=== PATIENT | female | born 1955 | race Caucasian/White ===

== ENCOUNTER 2022-04-07 13:20 | Inpatient (IN) | payer MEDICARE, OTHER, SELFPAY ==
[2022-04-07] MEDS ORDERED: Fentanyl 100 MCG/2 ML VIAL ONE (14:49)
[2022-04-07 15:16] LABS: Hemoglobin 15.8 g/dL (12.0-15.5); Mean Corpuscular HGB CONC 33.1 g/dL (32.0-36.0); Mean Corpuscular Hemoglobin 30.4 pg (27.0-33.0); Mean Corpuscular Volume 91.9 fl (81.6-98.3); Mean Platelet Volume 9.3 fl (7.4-10.4); Platelet Count 565 10x3/uL (150-450); RBC Distribution Width 12.9 % (11.5-14.5); Red Blood Cell (RBC) Count 5.19 10x6/uL (3.90-5.03); White Blood Cell (WBC) Count 27.6 10x3/uL (3.5-10.5)
[2022-04-07 15:35] LABS: ALT (SGPT) 46 U/L (8-55); AST (SGOT) 104 U/L (5-34); Albumin 3.8 g/dL (3.4-4.8); Alkaline Phosphatase 125 U/L (40-110); Anion Gap 23 mmol/L (10-20); BUN (Urea Nitrogen) 31 mg/dL (9.8-20.1); Calc. Creatinine Clearance 0 mL/min (70-130); Calcium 9.7 mg/dL (7.8-10.44); Carbon Dioxide 15 mmol/L (23-31); Chloride 104 mmol/L (98-107); Estimated GFR 37; Globulin 3.9 g/dL (2.4-3.5); Glucose 122 mg/dL (80-115); Potassium 4.9 mmol/L (3.5-5.1); Protein, Total 7.7 g/dL (5.8-8.1); Sodium 137 mmol/L (136-145)
[2022-04-07 16:01] LABS: Band 2 % (5-11)
[2022-04-07 16:06] LABS: MDiff Complete? YES
[2022-04-07 16:07] LABS: Lymphocytes 5 % (21-51); Monocytes 5 % (0-10); Neutrophil 88 % (42-75)
[2022-04-07 16:08] LABS: Platelet Morphology Comment Appears Increased
[2022-04-07 16:12] LABS: CK (CPK) 7656 U/L (29-168)
[2022-04-07] MEDS ORDERED: Senokot S 8.6-50 MG TAB PO PRN (18:32)
[2022-04-07] MEDS ORDERED: Ondansetron ODT 4 MG TAB PO PRN (18:32)
[2022-04-07] MEDS ORDERED: Acetaminophen 325 MG TAB PO PRN (18:32)
[2022-04-07] MEDS ORDERED: Ondansetron PF 4 MG/2 ML Vial IVP PRN (18:32)
[2022-04-07 19:19] LABS: Lactic Acid 2.1 mmol/L (0.5-2.2)
[2022-04-07 20:19] VITALS: BMI 61.1
[2022-04-07] MEDS: HYDROcodone/Acetaminophen 5/325 mg Tablet PO PRN (22:02)
[2022-04-07] MEDS: Nystatin Powder 15 GM BOT TOP SCH (22:04)
[2022-04-07] MEDS: cefTRIAXone\\ROCEPHIN 2 GM in Sodium Chloride 0.9% 100 ML IVPB SCH (22:04)
[2022-04-07] MEDS: Sodium Chloride 0.9% 1,000 ML IV SCH (22:04)
[2022-04-07] MEDS: Heparin 5,000 UNITS/ML VIAL SC SCH (22:19)
[2022-04-08] MEDS: Sodium Chloride 0.9% 1,000 ML IV SCH ×2 (01:16→09:05)
[2022-04-08] MEDS: HYDROcodone/Acetaminophen 5/325 mg Tablet PO PRN ×2 (03:00→09:00)
[2022-04-08 03:54] LABS: SARS-CoV-2 NAA Rapid Test Not Detected (NotDetected)
[2022-04-08 05:19] LABS: #Basophils 0.1 10x3/uL (0.0-0.2); #Eosinphils 0.1 10x3/uL (0.0-0.5); #Monocytes 1.8 10x3/uL (0.0-1.1); #Neutrophils 15.8 10x3/uL (1.5-8.4); %Basophils 0.3 % (0.0-2.0); %Eosinophils 0.6 % (0.0-6.0); %Lymphocytes 10.1 % (18.0-47.0); %Monocytes 8.9 % (0.0-10.0); %Neutrophils 79.3 % (40.0-75.0); Hemoglobin 12.8 g/dL (12.0-15.5); Mean Corpuscular HGB CONC 32.8 g/dL (32.0-36.0); Mean Corpuscular Hemoglobin 30.5 pg (27.0-33.0); Mean Corpuscular Volume 92.9 fl (81.6-98.3); Platelet Count 427 10x3/uL (150-450); White Blood Cell (WBC) Count 19.9 10x3/uL (3.5-10.5)
[2022-04-08 05:43] LABS: ALT (SGPT) 44 U/L (8-55); AST (SGOT) 105 U/L (5-34); Alkaline Phosphatase 105 U/L (40-110); Anion Gap 18 mmol/L (10-20); BUN (Urea Nitrogen) 33 mg/dL (9.8-20.1); Bilirubin, Total 0.7 mg/dL (0.2-1.2); Calc. Creatinine Clearance 125 mL/min (70-130); Calcium 8.5 mg/dL (7.8-10.44); Carbon Dioxide 14 mmol/L (23-31); Chloride 109 mmol/L (98-107); Estimated GFR 51; Globulin 2.8 g/dL (2.4-3.5); Glucose 130 mg/dL (80-115); Magnesium 1.8 mg/dL (1.6-2.6); Phosphorus 4.5 mg/dL (2.3-4.7); Potassium 4.3 mmol/L (3.5-5.1); Protein, Total 5.8 g/dL (5.8-8.1); Sodium 137 mmol/L (136-145)
[2022-04-08 05:59] LABS: CK (CPK) 5074 U/L (29-168)
[2022-04-08] MEDS ORDERED: Fluconazole 100 MG TAB PO SCH (09:00)
[2022-04-08] MEDS: Nystatin Powder 15 GM BOT TOP SCH ×2 (09:05→21:36)
[2022-04-08] MEDS: Heparin 5,000 UNITS/ML VIAL SC SCH ×3 (09:06→21:33)
[2022-04-08] MEDS: Lactated Ringer's 1,000 ML IV SCH ×2 (12:09→18:52)
[2022-04-08] MEDS: HYDROcodone/Acetaminophen 7.5/325 mg Tablet PO PRN ×2 (13:21→21:32)
[2022-04-08] MEDS: Gabapentin 100 MG CAP PO SCH ×2 (17:06→21:31)
[2022-04-08] MEDS: cefTRIAXone\\ROCEPHIN 2 GM in Sodium Chloride 0.9% 100 ML IVPB SCH (21:25)
[2022-04-08 22:15] LABS: Bilirubin Neg (Negative); Blood, Urine 250 (Negative); Clarity Slightly Cloudy (Clear); Glucose, Urine (Dipstick) Normal (Negative); Ketone, Urine Negative (Negative); Leukocyte 500 (Negative); Nitrite Positive (Negative); Protein, Urine (Dipstick) 30 mg/dl (Neg-Trace)
[2022-04-08 22:31] LABS: Bacteria/HPF 1+ HPF (None Seen); WBC/HPF 21-50 HPF (0-3)
[2022-04-09] MEDS: Lactated Ringer's 1,000 ML IV SCH (02:59)
[2022-04-09 04:46] LABS: ALT (SGPT) 41 U/L (8-55); AST (SGOT) 75 U/L (5-34); Albumin 2.7 g/dL (3.4-4.8); Alkaline Phosphatase 86 U/L (40-110); Anion Gap 10 mmol/L (10-20); BUN (Urea Nitrogen) 17 mg/dL (9.8-20.1); Bilirubin, Total 0.3 mg/dL (0.2-1.2); CK (CPK) 2408 U/L (29-168); Calc. Creatinine Clearance 199 mL/min (70-130); Calcium 8.4 mg/dL (7.8-10.44); Carbon Dioxide 22 mmol/L (23-31); Chloride 108 mmol/L (98-107); Estimated GFR 89; Globulin 2.5 g/dL (2.4-3.5); Glucose 106 mg/dL (80-115); Potassium 3.7 mmol/L (3.5-5.1); Protein, Total 5.2 g/dL (5.8-8.1); Sodium 136 mmol/L (136-145)
[2022-04-09 04:50] LABS: #Basophils 0.1 10x3/uL (0.0-0.2); #Eosinphils 0.3 10x3/uL (0.0-0.5); #Monocytes 0.9 10x3/uL (0.0-1.1); #Neutrophils 8.7 10x3/uL (1.5-8.4); %Basophils 0.7 % (0.0-2.0); %Eosinophils 2.1 % (0.0-6.0); %Lymphocytes 20.1 % (18.0-47.0); %Neutrophils 69.2 % (40.0-75.0); Hemoglobin 11.3 g/dL (12.0-15.5); Mean Corpuscular HGB CONC 31.7 g/dL (32.0-36.0); Mean Corpuscular Hemoglobin 30.6 pg (27.0-33.0); Mean Corpuscular Volume 96.5 fl (81.6-98.3); Mean Platelet Volume 9.6 fl (7.4-10.4); Platelet Count 349 10x3/uL (150-450); Red Blood Cell (RBC) Count 3.69 10x6/uL (3.90-5.03); White Blood Cell (WBC) Count 12.6 10x3/uL (3.5-10.5)
[2022-04-09] MEDS: HYDROcodone/Acetaminophen 7.5/325 mg Tablet PO PRN ×3 (06:04→16:56)
[2022-04-09] MEDS: Gabapentin 100 MG CAP PO SCH ×3 (09:21→20:24)
[2022-04-09] MEDS: Heparin 5,000 UNITS/ML VIAL SC SCH ×3 (09:22→20:25)
[2022-04-09] MEDS: Nystatin Powder 15 GM BOT TOP SCH ×2 (09:27→20:30)
[2022-04-09] MEDS: Fentanyl 100 MCG/2 ML VIAL SLOW IVP PRN (14:24)
[2022-04-09] MEDS: cefTRIAXone\\ROCEPHIN 2 GM in Sodium Chloride 0.9% 100 ML IVPB SCH (20:23)
[2022-04-10] MEDS: HYDROcodone/Acetaminophen 7.5/325 mg Tablet PO PRN ×5 (02:17→22:08)
[2022-04-10 08:19] LABS: #Basophils 0.1 10x3/uL (0.0-0.2); #Eosinphils 0.3 10x3/uL (0.0-0.5); #Monocytes 0.7 10x3/uL (0.0-1.1); #Neutrophils 6.4 10x3/uL (1.5-8.4); %Basophils 0.9 % (0.0-2.0); %Eosinophils 2.8 % (0.0-6.0); %Monocytes 7.7 % (0.0-10.0); %Neutrophils 69.7 % (40.0-75.0); Hemoglobin 11.4 g/dL (12.0-15.5); Mean Corpuscular HGB CONC 31.7 g/dL (32.0-36.0); Mean Corpuscular Hemoglobin 30.3 pg (27.0-33.0); Mean Corpuscular Volume 95.7 fl (81.6-98.3); Mean Platelet Volume 9.1 fl (7.4-10.4); Platelet Count 322 10x3/uL (150-450); RBC Distribution Width 12.7 % (11.5-14.5); Red Blood Cell (RBC) Count 3.76 10x6/uL (3.90-5.03); White Blood Cell (WBC) Count 9.2 10x3/uL (3.5-10.5)
[2022-04-10 08:39] LABS: Anion Gap 11 mmol/L (10-20); BUN (Urea Nitrogen) 6 mg/dL (9.8-20.1); Calc. Creatinine Clearance 234 mL/min (70-130); Calcium 8.6 mg/dL (7.8-10.44); Carbon Dioxide 26 mmol/L (23-31); Chloride 105 mmol/L (98-107); Estimated GFR 99; Glucose 98 mg/dL (80-115); Potassium 4.3 mmol/L (3.5-5.1); Sodium 138 mmol/L (136-145)
[2022-04-10] MEDS: Gabapentin 100 MG CAP PO SCH ×3 (09:02→22:07)
[2022-04-10] MEDS: Heparin 5,000 UNITS/ML VIAL SC SCH ×3 (09:02→22:07)
[2022-04-10] MEDS: Nystatin Powder 15 GM BOT TOP SCH ×2 (09:44→22:18)
[2022-04-10] MEDS: Fentanyl 100 MCG/2 ML VIAL SLOW IVP PRN (11:30)
[2022-04-10] MEDS ORDERED: Cefaclor 250 MG CAP PO SCH (22:00)
[2022-04-10] MEDS: Cefdinir 300 MG CAP PO SCH (22:08)
[2022-04-11] MEDS: HYDROcodone/Acetaminophen 7.5/325 mg Tablet PO PRN ×4 (04:45→21:11)
[2022-04-11 05:05] LABS: #Basophils 0.1 10x3/uL (0.0-0.2); #Eosinphils 0.3 10x3/uL (0.0-0.5); #Monocytes 0.7 10x3/uL (0.0-1.1); #Neutrophils 5.8 10x3/uL (1.5-8.4); %Basophils 1.3 % (0.0-2.0); %Eosinophils 2.9 % (0.0-6.0); %Lymphocytes 23.9 % (18.0-47.0); %Monocytes 7.6 % (0.0-10.0); %Neutrophils 62.6 % (40.0-75.0); Hemoglobin 11.7 g/dL (12.0-15.5); Mean Corpuscular HGB CONC 32.4 g/dL (32.0-36.0); Mean Corpuscular Hemoglobin 30.5 pg (27.0-33.0); Mean Platelet Volume 9.4 fl (7.4-10.4); Platelet Count 356 10x3/uL (150-450); RBC Distribution Width 12.4 % (11.5-14.5); Red Blood Cell (RBC) Count 3.84 10x6/uL (3.90-5.03); White Blood Cell (WBC) Count 9.3 10x3/uL (3.5-10.5)
[2022-04-11 05:29] LABS: Anion Gap 14 mmol/L (10-20); BUN (Urea Nitrogen) 7 mg/dL (9.8-20.1); Calc. Creatinine Clearance 237 mL/min (70-130); Calcium 8.9 mg/dL (7.8-10.44); Carbon Dioxide 26 mmol/L (23-31); Chloride 103 mmol/L (98-107); Estimated GFR 99; Glucose 105 mg/dL (80-115); Sodium 139 mmol/L (136-145)
[2022-04-11] MEDS: Cefdinir 300 MG CAP PO SCH ×2 (09:35→21:06)
[2022-04-11] MEDS: Gabapentin 100 MG CAP PO SCH ×3 (09:35→21:06)
[2022-04-11] MEDS: Heparin 5,000 UNITS/ML VIAL SC SCH ×3 (09:37→21:06)
[2022-04-11] MEDS: Nystatin Powder 15 GM BOT TOP SCH ×2 (09:45→21:17)
[2022-04-11] MEDS: Fentanyl 100 MCG/2 ML VIAL SLOW IVP PRN (11:25)
[2022-04-11] MEDS ORDERED: Lorazepam 0.5 MG TAB PO PRN (11:33)
[2022-04-11] MEDS: Sertraline 25 MG TAB PO SCH (13:35)
[2022-04-12 04:41] LABS: #Basophils 0.1 10x3/uL (0.0-0.2); #Eosinphils 0.3 10x3/uL (0.0-0.5); #Monocytes 0.9 10x3/uL (0.0-1.1); #Neutrophils 6.7 10x3/uL (1.5-8.4); %Basophils 1.3 % (0.0-2.0); %Eosinophils 2.7 % (0.0-6.0); %Lymphocytes 18.7 % (18.0-47.0); %Monocytes 8.9 % (0.0-10.0); %Neutrophils 65.1 % (40.0-75.0); Mean Corpuscular HGB CONC 33.1 g/dL (32.0-36.0); Mean Corpuscular Hemoglobin 30.9 pg (27.0-33.0); Mean Corpuscular Volume 93.3 fl (81.6-98.3); Mean Platelet Volume 9.2 fl (7.4-10.4); Platelet Count 392 10x3/uL (150-450); RBC Distribution Width 12.4 % (11.5-14.5); Red Blood Cell (RBC) Count 3.88 10x6/uL (3.90-5.03); White Blood Cell (WBC) Count 10.3 10x3/uL (3.5-10.5)
[2022-04-12 04:56] LABS: Anion Gap 13 mmol/L (10-20); BUN (Urea Nitrogen) 7 mg/dL (9.8-20.1); Calc. Creatinine Clearance 253 mL/min (70-130); Calcium 8.7 mg/dL (7.8-10.44); Carbon Dioxide 26 mmol/L (23-31); Chloride 102 mmol/L (98-107); Estimated GFR 101; Glucose 114 mg/dL (80-115); Sodium 137 mmol/L (136-145)
[2022-04-12] MEDS: HYDROcodone/Acetaminophen 7.5/325 mg Tablet PO PRN (06:31)
[2022-04-12] MEDS: Cefdinir 300 MG CAP PO SCH ×2 (09:33→21:05)
[2022-04-12] MEDS: Gabapentin 100 MG CAP PO SCH ×3 (09:34→21:01)
[2022-04-12] MEDS: Nystatin Powder 15 GM BOT TOP SCH ×2 (09:35→21:04)
[2022-04-12] MEDS: Heparin 5,000 UNITS/ML VIAL SC SCH ×3 (09:36→21:06)
[2022-04-12] MEDS: Sertraline 25 MG TAB PO SCH (12:05)
[2022-04-12] MEDS: Fentanyl 100 MCG/2 ML VIAL SLOW IVP PRN (12:05)
[2022-04-12] MEDS: HYDROcodone/Acetaminophen 10/325 mg Tablet PO PRN ×2 (14:06→21:02)
[2022-04-13] MEDS: HYDROcodone/Acetaminophen 10/325 mg Tablet PO PRN ×2 (05:52→21:58)
[2022-04-13 06:28] LABS: #Basophils 0.2 10x3/uL (0.0-0.2); #Eosinphils 0.3 10x3/uL (0.0-0.5); #Monocytes 0.9 10x3/uL (0.0-1.1); #Neutrophils 6.7 10x3/uL (1.5-8.4); %Basophils 1.4 % (0.0-2.0); %Monocytes 8.9 % (0.0-10.0); %Neutrophils 63.4 % (40.0-75.0); Anion Gap 12 mmol/L (10-20); BUN (Urea Nitrogen) 6 mg/dL (9.8-20.1); Calc. Creatinine Clearance 272 mL/min (70-130); Calcium 8.9 mg/dL (7.8-10.44); Carbon Dioxide 29 mmol/L (23-31); Chloride 100 mmol/L (98-107); Estimated GFR 102; Glucose 114 mg/dL (80-115); Hemoglobin 11.9 g/dL (12.0-15.5); Mean Corpuscular HGB CONC 32.6 g/dL (32.0-36.0); Mean Corpuscular Hemoglobin 30.6 pg (27.0-33.0); Mean Corpuscular Volume 93.8 fl (81.6-98.3); Platelet Count 419 10x3/uL (150-450); Potassium 3.9 mmol/L (3.5-5.1); RBC Distribution Width 12.6 % (11.5-14.5); Red Blood Cell (RBC) Count 3.89 10x6/uL (3.90-5.03); Sodium 137 mmol/L (136-145); White Blood Cell (WBC) Count 10.6 10x3/uL (3.5-10.5)
[2022-04-13] MEDS: Gabapentin 100 MG CAP PO SCH ×3 (08:19→21:57)
[2022-04-13] MEDS: Heparin 5,000 UNITS/ML VIAL SC SCH ×3 (08:20→21:59)
[2022-04-13] MEDS: Nystatin Powder 15 GM BOT TOP SCH ×2 (08:20→22:01)
[2022-04-13] MEDS: Fentanyl 100 MCG/2 ML VIAL SLOW IVP PRN (13:15)
[2022-04-13] MEDS: Sertraline 25 MG TAB PO SCH (13:15)
[2022-04-14 04:15] LABS: #Basophils 0.2 10x3/uL (0.0-0.2); #Eosinphils 0.4 10x3/uL (0.0-0.5); #Monocytes 0.9 10x3/uL (0.0-1.1); %Basophils 1.6 % (0.0-2.0); %Eosinophils 3.2 % (0.0-6.0); %Lymphocytes 19.7 % (18.0-47.0); %Neutrophils 62.6 % (40.0-75.0); Mean Corpuscular HGB CONC 32.3 g/dL (32.0-36.0); Mean Corpuscular Hemoglobin 30.7 pg (27.0-33.0); Mean Corpuscular Volume 94.9 fl (81.6-98.3); Platelet Count 419 10x3/uL (150-450); RBC Distribution Width 12.9 % (11.5-14.5); Red Blood Cell (RBC) Count 3.91 10x6/uL (3.90-5.03); White Blood Cell (WBC) Count 11.2 10x3/uL (3.5-10.5)
[2022-04-14 04:23] LABS: Anion Gap 12 mmol/L (10-20); BUN (Urea Nitrogen) 10 mg/dL (9.8-20.1); Calc. Creatinine Clearance 258 mL/min (70-130); Calcium 8.7 mg/dL (7.8-10.44); Carbon Dioxide 29 mmol/L (23-31); Chloride 100 mmol/L (98-107); Estimated GFR 101; Glucose 109 mg/dL (80-115); Potassium 3.8 mmol/L (3.5-5.1); Sodium 137 mmol/L (136-145)
[2022-04-14] MEDS: Fentanyl 100 MCG/2 ML VIAL SLOW IVP PRN (06:33)
[2022-04-14] MEDS: Gabapentin 100 MG CAP PO SCH ×3 (08:40→22:10)
[2022-04-14] MEDS: Heparin 5,000 UNITS/ML VIAL SC SCH ×3 (08:40→22:12)
[2022-04-14] MEDS: Nystatin Powder 15 GM BOT TOP SCH ×2 (08:44→22:11)
[2022-04-14] MEDS: HYDROcodone/Acetaminophen 10/325 mg Tablet PO PRN ×2 (10:26→22:10)
[2022-04-14] MEDS: Sertraline 25 MG TAB PO SCH (12:53)
[2022-04-15 04:47] LABS: #Basophils 0.2 10x3/uL (0.0-0.2); #Eosinphils 0.4 10x3/uL (0.0-0.5); #Monocytes 0.9 10x3/uL (0.0-1.1); #Neutrophils 6.8 10x3/uL (1.5-8.4); %Basophils 1.5 % (0.0-2.0); %Eosinophils 3.5 % (0.0-6.0); %Lymphocytes 21.2 % (18.0-47.0); %Monocytes 8.2 % (0.0-10.0); %Neutrophils 61.5 % (40.0-75.0); Hemoglobin 12.2 g/dL (12.0-15.5); Mean Corpuscular HGB CONC 32.2 g/dL (32.0-36.0); Mean Corpuscular Hemoglobin 30.7 pg (27.0-33.0); Mean Corpuscular Volume 95.2 fl (81.6-98.3); Mean Platelet Volume 9.2 fl (7.4-10.4); Platelet Count 454 10x3/uL (150-450); RBC Distribution Width 12.9 % (11.5-14.5); Red Blood Cell (RBC) Count 3.98 10x6/uL (3.90-5.03)
[2022-04-15 05:11] LABS: Anion Gap 14 mmol/L (10-20); BUN (Urea Nitrogen) 10 mg/dL (9.8-20.1); Calc. Creatinine Clearance 258 mL/min (70-130); Carbon Dioxide 26 mmol/L (23-31); Chloride 101 mmol/L (98-107); Estimated GFR 101; Glucose 110 mg/dL (80-115); Potassium 4.1 mmol/L (3.5-5.1); Sodium 137 mmol/L (136-145)
[2022-04-15] MEDS: HYDROcodone/Acetaminophen 10/325 mg Tablet PO PRN ×4 (05:20→20:36)
[2022-04-15] MEDS: Gabapentin 100 MG CAP PO SCH ×3 (09:43→20:36)
[2022-04-15] MEDS: Heparin 5,000 UNITS/ML VIAL SC SCH ×3 (09:46→20:37)
[2022-04-15] MEDS: Nystatin Powder 15 GM BOT TOP SCH ×2 (12:47→20:39)
[2022-04-15] MEDS: Fentanyl 100 MCG/2 ML VIAL SLOW IVP PRN (13:21)
[2022-04-15] MEDS: Sertraline 25 MG TAB PO SCH (15:11)
[2022-04-16 04:03] LABS: #Basophils 0.2 10x3/uL (0.0-0.2); #Eosinphils 0.4 10x3/uL (0.0-0.5); #Monocytes 0.8 10x3/uL (0.0-1.1); #Neutrophils 6.7 10x3/uL (1.5-8.4); %Basophils 1.5 % (0.0-2.0); %Eosinophils 3.5 % (0.0-6.0); %Lymphocytes 21.1 % (18.0-47.0); %Monocytes 7.2 % (0.0-10.0); %Neutrophils 63.9 % (40.0-75.0); Mean Corpuscular HGB CONC 31.9 g/dL (32.0-36.0); Mean Corpuscular Hemoglobin 30.6 pg (27.0-33.0); Mean Corpuscular Volume 95.9 fl (81.6-98.3); Mean Platelet Volume 8.9 fl (7.4-10.4); Platelet Count 425 10x3/uL (150-450); RBC Distribution Width 13.3 % (11.5-14.5); Red Blood Cell (RBC) Count 3.92 10x6/uL (3.90-5.03); White Blood Cell (WBC) Count 10.5 10x3/uL (3.5-10.5)
[2022-04-16 04:15] LABS: Anion Gap 12 mmol/L (10-20); BUN (Urea Nitrogen) 11 mg/dL (9.8-20.1); Calc. Creatinine Clearance 262 mL/min (70-130); Calcium 8.7 mg/dL (7.8-10.44); Carbon Dioxide 28 mmol/L (23-31); Chloride 100 mmol/L (98-107); Estimated GFR 101; Glucose 111 mg/dL (80-115); Sodium 136 mmol/L (136-145)
[2022-04-16] MEDS: HYDROcodone/Acetaminophen 10/325 mg Tablet PO PRN (05:19)
[2022-04-16] MEDS: Nystatin Powder 15 GM BOT TOP SCH ×2 (08:48→23:54)
[2022-04-16] MEDS: Heparin 5,000 UNITS/ML VIAL SC SCH ×3 (08:48→21:20)
[2022-04-16] MEDS: Gabapentin 100 MG CAP PO SCH ×3 (08:48→21:10)
[2022-04-16] MEDS: Sertraline 25 MG TAB PO SCH (08:48)
[2022-04-16] MEDS: Fentanyl 100 MCG/2 ML VIAL SLOW IVP PRN (11:35)
[2022-04-17 03:47] LABS: #Basophils 0.2 10x3/uL (0.0-0.2); #Eosinphils 0.3 10x3/uL (0.0-0.5); #Monocytes 0.9 10x3/uL (0.0-1.1); #Neutrophils 8.9 10x3/uL (1.5-8.4); %Basophils 1.3 % (0.0-2.0); %Monocytes 7.2 % (0.0-10.0); %Neutrophils 69.9 % (40.0-75.0); Hemoglobin 12.6 g/dL (12.0-15.5); Mean Corpuscular HGB CONC 32.3 g/dL (32.0-36.0); Mean Corpuscular Hemoglobin 30.4 pg (27.0-33.0); Mean Corpuscular Volume 94.2 fl (81.6-98.3); Mean Platelet Volume 8.9 fl (7.4-10.4); Platelet Count 454 10x3/uL (150-450); RBC Distribution Width 12.9 % (11.5-14.5); Red Blood Cell (RBC) Count 4.14 10x6/uL (3.90-5.03); White Blood Cell (WBC) Count 12.7 10x3/uL (3.5-10.5)
[2022-04-17 03:59] LABS: Anion Gap 12 mmol/L (10-20); BUN (Urea Nitrogen) 10 mg/dL (9.8-20.1); Calc. Creatinine Clearance 245 mL/min (70-130); Calcium 9.1 mg/dL (7.8-10.44); Carbon Dioxide 27 mmol/L (23-31); Chloride 102 mmol/L (98-107); Estimated GFR 100; Glucose 115 mg/dL (80-115); Potassium 4.2 mmol/L (3.5-5.1); Sodium 137 mmol/L (136-145)
[2022-04-17] MEDS: HYDROcodone/Acetaminophen 10/325 mg Tablet PO PRN ×3 (09:06→21:13)
[2022-04-17] MEDS: Nystatin Powder 15 GM BOT TOP SCH ×2 (09:08→21:15)
[2022-04-17] MEDS: Gabapentin 100 MG CAP PO SCH (09:14)
[2022-04-17] MEDS: Heparin 5,000 UNITS/ML VIAL SC SCH ×3 (09:15→21:14)
[2022-04-17] MEDS: Lidocaine 5% Patch TD SCH (10:37)
[2022-04-17] MEDS: Sertraline 25 MG TAB PO SCH (12:53)
[2022-04-17] MEDS: Gabapentin 300 MG CAP PO SCH ×2 (14:39→21:13)
[2022-04-17] MEDS: Senokot S 8.6-50 MG TAB PO SCH (21:15)
[2022-04-17] MEDS: Transdermal Patch Removal TOP SCH (23:37)
[2022-04-18 05:51] LABS: #Basophils 0.2 10x3/uL (0.0-0.2); #Eosinphils 0.4 10x3/uL (0.0-0.5); #Monocytes 1.1 10x3/uL (0.0-1.1); #Neutrophils 9.1 10x3/uL (1.5-8.4); %Basophils 1.3 % (0.0-2.0); %Lymphocytes 21.3 % (18.0-47.0); %Monocytes 8.2 % (0.0-10.0); %Neutrophils 64.9 % (40.0-75.0); Hemoglobin 12.7 g/dL (12.0-15.5); Mean Corpuscular HGB CONC 31.4 g/dL (32.0-36.0); Mean Corpuscular Hemoglobin 30.9 pg (27.0-33.0); Mean Corpuscular Volume 98.3 fl (81.6-98.3); Mean Platelet Volume 9.2 fl (7.4-10.4); Platelet Count 451 10x3/uL (150-450); RBC Distribution Width 13.2 % (11.5-14.5); Red Blood Cell (RBC) Count 4.11 10x6/uL (3.90-5.03)
[2022-04-18 06:04] LABS: Anion Gap 15 mmol/L (10-20); BUN (Urea Nitrogen) 14 mg/dL (9.8-20.1); CK (CPK) 44 U/L (29-168); Calc. Creatinine Clearance 220 mL/min (70-130); Calcium 9.4 mg/dL (7.8-10.44); Carbon Dioxide 29 mmol/L (23-31); Chloride 101 mmol/L (98-107); Estimated GFR 97; Glucose 111 mg/dL (80-115); Potassium 4.9 mmol/L (3.5-5.1); Sodium 140 mmol/L (136-145)
[2022-04-18] MEDS: Heparin 5,000 UNITS/ML VIAL SC SCH ×3 (08:14→22:30)
[2022-04-18] MEDS: Lidocaine 5% Patch TD SCH (08:18)
[2022-04-18] MEDS: Gabapentin 300 MG CAP PO SCH ×3 (08:19→22:30)
[2022-04-18] MEDS: Senokot S 8.6-50 MG TAB PO SCH ×2 (08:20→22:31)
[2022-04-18] MEDS: HYDROcodone/Acetaminophen 10/325 mg Tablet PO PRN ×3 (08:20→17:09)
[2022-04-18] MEDS: Nystatin Powder 15 GM BOT TOP SCH ×2 (08:21→22:31)
[2022-04-18] MEDS: Sertraline 25 MG TAB PO SCH (12:55)
[2022-04-18] MEDS: Transdermal Patch Removal TOP SCH (22:30)
[2022-04-19] MEDS: HYDROcodone/Acetaminophen 10/325 mg Tablet PO PRN ×2 (00:49→12:09)
[2022-04-19 05:36] LABS: #Basophils 0.2 10x3/uL (0.0-0.2); #Eosinphils 0.4 10x3/uL (0.0-0.5); #Neutrophils 8.5 10x3/uL (1.5-8.4); %Basophils 1.3 % (0.0-2.0); %Eosinophils 2.8 % (0.0-6.0); %Lymphocytes 20.7 % (18.0-47.0); %Monocytes 7.9 % (0.0-10.0); Hemoglobin 11.9 g/dL (12.0-15.5); Mean Corpuscular HGB CONC 31.7 g/dL (32.0-36.0); Mean Corpuscular Hemoglobin 31.1 pg (27.0-33.0); Mean Corpuscular Volume 97.9 fl (81.6-98.3); Mean Platelet Volume 9.2 fl (7.4-10.4); Platelet Count 439 10x3/uL (150-450); RBC Distribution Width 13.6 % (11.5-14.5); Red Blood Cell (RBC) Count 3.83 10x6/uL (3.90-5.03); White Blood Cell (WBC) Count 12.8 10x3/uL (3.5-10.5)
[2022-04-19 05:48] LABS: Anion Gap 12 mmol/L (10-20); BUN (Urea Nitrogen) 14 mg/dL (9.8-20.1); Calc. Creatinine Clearance 220 mL/min (70-130); Calcium 9.2 mg/dL (7.8-10.44); Carbon Dioxide 29 mmol/L (23-31); Chloride 100 mmol/L (98-107); Estimated GFR 97; Glucose 109 mg/dL (80-115); Potassium 4.7 mmol/L (3.5-5.1); Sodium 136 mmol/L (136-145)
[2022-04-19 10:08] VITALS: BP 124/60; TEMP 98.1
[2022-04-19] MEDS: Heparin 5,000 UNITS/ML VIAL SC SCH (10:52)
[2022-04-19] MEDS: Gabapentin 300 MG CAP PO SCH (10:53)
[2022-04-19] MEDS: Nystatin Powder 15 GM BOT TOP SCH (10:54)
[2022-04-19] MEDS: Senokot S 8.6-50 MG TAB PO SCH (10:54)
[2022-04-19] MEDS: Lidocaine 5% Patch TD SCH (10:55)
[2022-04-19] MEDS: Sertraline 25 MG TAB PO SCH (12:09)
== END 2022-04-19 13:15 | DRG 564 ==
LOC: CSHERS 13:20 → CSHTELE 17:24
PROVIDERS: ADMIT Family Medicine; ATTEND Internal Medicine
DX: T79.6XXA Traumatic ischemia of muscle, initial encounter (principal); A41.9 Sepsis, unspecified organism; N17.9 Acute kidney failure, unspecified; E87.20 Acidosis, unspecified; Z68.44 Body mass index [BMI] 60.0-69.9, adult; N39.0 Urinary tract infection, site not specified; I10 Essential (primary) hypertension; E78.5 Hyperlipidemia, unspecified; G47.33 Obstructive sleep apnea (adult) (pediatric); M79.7 Fibromyalgia; Z20.822 Contact with and (suspected) exposure to COVID-19; Z66 Do not resuscitate; Z51.5 Encounter for palliative care; E86.0 Dehydration; Z60.2 Problems related to living alone; E66.01 Morbid (severe) obesity due to excess calories; R53.81 Other malaise; G89.29 Other chronic pain; M54.50 Low back pain, unspecified; F32.A Depression, unspecified; L89.322 Pressure ulcer of left buttock, stage 2; W18.30XA Fall on same level, unspecified, initial encounter; Z88.0 Allergy status to penicillin; Z88.2 Allergy status to sulfonamides; Z88.5 Allergy status to narcotic agent; Z87.01 Personal history of pneumonia (recurrent); Z86.16 Personal history of COVID-19; Z90.49 Acquired absence of other specified parts of digestive tract; Z90.89 Acquired absence of other organs; Z82.49 Family history of ischemic heart disease and other diseases of the circulatory system; Y92.002 Bathroom of unspecified non-institutional (private) residence as the place of occurrence of the external cause; S71.111A Laceration without foreign body, right thigh, initial encounter
CPT/HCPCS: 36415; 36416; 71045; 72170; 76770; 80048; 80053; 81001; 82550; 83605; 83735; 84100; 84484; 84550; 85025; 87040; 87086; 87149; 87811; 93005; 94660; 94760; 94799; 96361; 96374; 96376; 97139; J0696; J1644; J3010; J3490; J7050; J7120

== ENCOUNTER 2022-08-04 12:28 | Inpatient (IN) | payer MEDICARE, SELFPAY ==
[2022-08-04] MEDS ORDERED: Iopamidol 300 61% 100 ML VIAL FS ONE (13:23)
[2022-08-04] MEDS ORDERED: Ondansetron PF 4 MG/2 ML Vial ONE (13:33)
[2022-08-04 13:44] LABS: Hemoglobin 14.8 g/dL (12.0-15.5); Mean Corpuscular HGB CONC 33.6 g/dL (32.0-36.0); Mean Corpuscular Hemoglobin 30.8 pg (27.0-33.0); Mean Corpuscular Volume 91.7 fl (81.6-98.3); Mean Platelet Volume 10.1 fl (7.4-10.4); Platelet Count 423 10x3/uL (150-450); RBC Distribution Width 12.9 % (11.5-14.5); White Blood Cell (WBC) Count 21.7 10x3/uL (3.5-10.5)
[2022-08-04] MEDS ORDERED: HYDROmorphone 0.5 MG/0.5 ML SYRINGE ONE (13:44)
[2022-08-04 13:51] LABS: ALT (SGPT) 30 U/L (8-55); AST (SGOT) 22 U/L (5-34); Albumin 3.6 g/dL (3.4-4.8); Alkaline Phosphatase 111 U/L (40-110); Anion Gap 18 mmol/L (10-20); BUN (Urea Nitrogen) 15 mg/dL (9.8-20.1); Bilirubin, Total 0.7 mg/dL (0.2-1.2); CK (CPK) 14 U/L (29-168); Calc. Creatinine Clearance 0 mL/min (70-130); Calcium 8.9 mg/dL (7.8-10.44); Carbon Dioxide 23 mmol/L (23-31); Chloride 97 mmol/L (98-107); Estimated GFR 94; Globulin 3.2 g/dL (2.4-3.5); Glucose 128 mg/dL (80-115); Magnesium 1.8 mg/dL (1.6-2.6); Potassium 4.5 mmol/L (3.5-5.1); Protein, Total 6.8 g/dL (5.8-8.1); Sodium 133 mmol/L (136-145)
[2022-08-04 14:13] LABS: MDiff Complete? YES
[2022-08-04 14:41] LABS: Band 6 % (5-11); Eosinophils 2 % (0-10); Lymphocytes 9 % (21-51); Monocytes 5 % (0-10); Neutrophil 78 % (42-75)
[2022-08-04 14:44] LABS: Platelet Adequacy Comment Appears Increased; RBC Morph Comment Within Normal Limits
[2022-08-04] MEDS ORDERED: Ondansetron PF 4 MG/2 ML Vial IVP PRN (16:25)
[2022-08-04] MEDS ORDERED: Acetaminophen 325 MG TAB PO PRN (16:25)
[2022-08-04] MEDS ORDERED: Ondansetron ODT 4 MG TAB PO PRN (16:25)
[2022-08-04] MEDS ORDERED: Meropenem 500 MG VIAL ONE (17:04)
[2022-08-04] MEDS: Sodium Chloride 0.9% 1,000 ML IV SCH (20:55)
[2022-08-05] MEDS: metroNIDAZOLE 500 MG in Premix Bag 1 BAG IVPB SCH ×4 (00:09→17:30)
[2022-08-05 05:17] LABS: Hemoglobin 13.4 g/dL (12.0-15.5); MDiff Complete? YES; Mean Corpuscular HGB CONC 33.3 g/dL (32.0-36.0); Mean Corpuscular Hemoglobin 30.3 pg (27.0-33.0); Mean Corpuscular Volume 91.2 fl (81.6-98.3); Mean Platelet Volume 9.6 fl (7.4-10.4); Platelet Count 406 10x3/uL (150-450); RBC Distribution Width 12.9 % (11.5-14.5); Red Blood Cell (RBC) Count 4.42 10x6/uL (3.90-5.03); White Blood Cell (WBC) Count 23.6 10x3/uL (3.5-10.5)
[2022-08-05 05:22] LABS: Anion Gap 13 mmol/L (10-20); BUN (Urea Nitrogen) 12 mg/dL (9.8-20.1); Calc. Creatinine Clearance 186 mL/min (70-130); Calcium 9.1 mg/dL (7.8-10.44); Carbon Dioxide 23 mmol/L (23-31); Chloride 100 mmol/L (98-107); Estimated GFR 97; Glucose 124 mg/dL (80-115); Potassium 3.8 mmol/L (3.5-5.1); Sodium 132 mmol/L (136-145)
[2022-08-05 06:36] LABS: Band 3 % (5-11); Eosinophils 1 % (0-10); Lymphocytes 3 % (21-51); Monocytes 17 % (0-10); Neutrophil 76 % (42-75)
[2022-08-05 06:41] LABS: Platelet Adequacy Comment Appears Adequate; RBC Morph Comment Within Normal Limits
[2022-08-05] MEDS: Sodium Chloride 0.9% 1,000 ML IV SCH ×2 (06:41→22:30)
[2022-08-05] MEDS: Aspirin 81 mg Enteric Coated Tablet PO SCH (10:46)
[2022-08-05] MEDS ORDERED: metroNIDAZOLE 500 MG/100 ML BAG ONE (17:50)
[2022-08-05] MEDS ORDERED: Metoprolol Tartrate 25 MG TAB PO SCH (22:15)
[2022-08-06] MEDS: metroNIDAZOLE 500 MG in Premix Bag 1 BAG IVPB SCH ×3 (01:13→17:17)
[2022-08-06 05:12] LABS: Anion Gap 14 mmol/L (10-20); BUN (Urea Nitrogen) 8 mg/dL (9.8-20.1); Calc. Creatinine Clearance 212 mL/min (70-130); Calcium 8.8 mg/dL (7.8-10.44); Carbon Dioxide 18 mmol/L (23-31); Chloride 104 mmol/L (98-107); Estimated GFR 100; Glucose 118 mg/dL (80-115); Potassium 3.6 mmol/L (3.5-5.1); Sodium 132 mmol/L (136-145)
[2022-08-06 05:22] LABS: #Basophils 0.1 10x3/uL (0.0-0.2); #Eosinphils 0.4 10x3/uL (0.0-0.5); #Monocytes 1.2 10x3/uL (0.0-1.1); #Neutrophils 14.1 10x3/uL (1.5-8.4); %Basophils 0.7 % (0.0-2.0); %Eosinophils 2.4 % (0.0-6.0); %Lymphocytes 8.7 % (18.0-47.0); %Monocytes 6.7 % (0.0-10.0); %Neutrophils 80.6 % (40.0-75.0); Hemoglobin 12.8 g/dL (12.0-15.5); Mean Corpuscular HGB CONC 33.6 g/dL (32.0-36.0); Mean Corpuscular Hemoglobin 30.6 pg (27.0-33.0); Mean Corpuscular Volume 91.1 fl (81.6-98.3); Mean Platelet Volume 9.7 fl (7.4-10.4); Platelet Count 399 10x3/uL (150-450); RBC Distribution Width 12.9 % (11.5-14.5); Red Blood Cell (RBC) Count 4.18 10x6/uL (3.90-5.03); White Blood Cell (WBC) Count 17.5 10x3/uL (3.5-10.5)
[2022-08-06] MEDS: Aspirin 81 mg Enteric Coated Tablet PO SCH (09:38)
[2022-08-06] MEDS: Sodium Chloride 0.9% 1,000 ML IV SCH (15:44)
[2022-08-06] MEDS: DULoxetine 30 MG CAP PO SCH (22:05)
[2022-08-06] MEDS: Pregabalin 75 MG CAP PO SCH (22:06)
[2022-08-06] MEDS: Cyclobenzaprine 10 MG TAB PO PRN (22:11)
[2022-08-07] MEDS: metroNIDAZOLE 500 MG in Premix Bag 1 BAG IVPB SCH ×3 (04:08→17:39)
[2022-08-07] MEDS: Sodium Chloride 0.9% 1,000 ML IV SCH ×2 (04:10→17:24)
[2022-08-07 05:52] LABS: Anion Gap 13 mmol/L (10-20); BUN (Urea Nitrogen) 7 mg/dL (9.8-20.1); Calc. Creatinine Clearance 234 mL/min (70-130); Calcium 8.6 mg/dL (7.8-10.44); Carbon Dioxide 22 mmol/L (23-31); Chloride 103 mmol/L (98-107); Estimated GFR 100; Glucose 108 mg/dL (80-115); Potassium 3.4 mmol/L (3.5-5.1); Sodium 135 mmol/L (136-145)
[2022-08-07 05:53] LABS: #Basophils 0.2 10x3/uL (0.0-0.2); #Eosinphils 0.5 10x3/uL (0.0-0.5); #Neutrophils 10.9 10x3/uL (1.5-8.4); %Basophils 1.1 % (0.0-2.0); %Eosinophils 3.5 % (0.0-6.0); %Lymphocytes 11.5 % (18.0-47.0); %Neutrophils 75.6 % (40.0-75.0); Hemoglobin 12.1 g/dL (12.0-15.5); Mean Corpuscular Volume 91.3 fl (81.6-98.3); Mean Platelet Volume 9.4 fl (7.4-10.4); Platelet Count 416 10x3/uL (150-450); RBC Distribution Width 12.9 % (11.5-14.5); White Blood Cell (WBC) Count 14.4 10x3/uL (3.5-10.5)
[2022-08-07] MEDS: Cholecalciferol (Vitamin D3) 400 UNITS TAB PO SCH (09:24)
[2022-08-07] MEDS: HYDROcodone/Acetaminophen 5/325 mg Tablet PO PRN (09:24)
[2022-08-07] MEDS: Aspirin 81 mg Enteric Coated Tablet PO SCH (09:26)
[2022-08-07] MEDS: Pregabalin 75 MG CAP PO SCH ×2 (09:26→21:59)
[2022-08-07] MEDS ORDERED: Sodium Chloride 0.9% 1,000 ML IV SCH (16:49)
[2022-08-07] MEDS: Cyclobenzaprine 10 MG TAB PO PRN (21:58)
[2022-08-07] MEDS: DULoxetine 30 MG CAP PO SCH (21:58)
[2022-08-08] MEDS: metroNIDAZOLE 500 MG in Premix Bag 1 BAG IVPB SCH ×3 (02:53→17:17)
[2022-08-08 06:19] LABS: Anion Gap 13 mmol/L (10-20); BUN (Urea Nitrogen) 5 mg/dL (9.8-20.1); Calc. Creatinine Clearance 226 mL/min (70-130); Calcium 8.4 mg/dL (7.8-10.44); Carbon Dioxide 23 mmol/L (23-31); Chloride 103 mmol/L (98-107); Estimated GFR 100; Glucose 108 mg/dL (80-115); Potassium 3.5 mmol/L (3.5-5.1); Sodium 135 mmol/L (136-145)
[2022-08-08 06:20] LABS: #Basophils 0.2 10x3/uL (0.0-0.2); #Eosinphils 0.6 10x3/uL (0.0-0.5); #Monocytes 0.9 10x3/uL (0.0-1.1); %Basophils 1.2 % (0.0-2.0); %Eosinophils 4.4 % (0.0-6.0); %Monocytes 7.5 % (0.0-10.0); %Neutrophils 71.2 % (40.0-75.0); Hemoglobin 11.9 g/dL (12.0-15.5); Mean Corpuscular HGB CONC 32.9 g/dL (32.0-36.0); Mean Corpuscular Hemoglobin 30.7 pg (27.0-33.0); Mean Corpuscular Volume 93.3 fl (81.6-98.3); Mean Platelet Volume 9.6 fl (7.4-10.4); Platelet Count 481 10x3/uL (150-450); RBC Distribution Width 13.1 % (11.5-14.5); Red Blood Cell (RBC) Count 3.88 10x6/uL (3.90-5.03); White Blood Cell (WBC) Count 12.6 10x3/uL (3.5-10.5)
[2022-08-08] MEDS: HYDROcodone/Acetaminophen 5/325 mg Tablet PO PRN (08:25)
[2022-08-08] MEDS: Aspirin 81 mg Enteric Coated Tablet PO SCH (08:26)
[2022-08-08] MEDS: Cholecalciferol (Vitamin D3) 400 UNITS TAB PO SCH (08:27)
[2022-08-08] MEDS: Pregabalin 75 MG CAP PO SCH ×2 (08:27→21:39)
[2022-08-08] MEDS ORDERED: traMADol HCl 50 MG TAB PO PRN (11:44)
[2022-08-08] MEDS ORDERED: Saccharomyces boulardii 250 MG CAP PO SCH (16:00)
[2022-08-08] MEDS: DULoxetine 30 MG CAP PO SCH (21:38)
[2022-08-08] MEDS ORDERED: Metoprolol Tartrate 5 MG/5 ML VIAL IVP SCH (22:50)
[2022-08-09] MEDS: metroNIDAZOLE 500 MG in Premix Bag 1 BAG IVPB SCH (02:00)
[2022-08-09 06:04] LABS: #Basophils 0.2 10x3/uL (0.0-0.2); #Eosinphils 0.5 10x3/uL (0.0-0.5); #Monocytes 1.2 10x3/uL (0.0-1.1); #Neutrophils 9.2 10x3/uL (1.5-8.4); %Basophils 1.2 % (0.0-2.0); %Eosinophils 3.9 % (0.0-6.0); %Lymphocytes 16.9 % (18.0-47.0); %Monocytes 8.7 % (0.0-10.0); %Neutrophils 66.6 % (40.0-75.0); Hemoglobin 11.8 g/dL (12.0-15.5); Mean Corpuscular HGB CONC 32.2 g/dL (32.0-36.0); Mean Corpuscular Hemoglobin 30.2 pg (27.0-33.0); Mean Corpuscular Volume 93.6 fl (81.6-98.3); Mean Platelet Volume 9.3 fl (7.4-10.4); Platelet Count 506 10x3/uL (150-450); Red Blood Cell (RBC) Count 3.91 10x6/uL (3.90-5.03); White Blood Cell (WBC) Count 13.9 10x3/uL (3.5-10.5)
[2022-08-09] MEDS: Vancomycin HCl 25 MG/ML ORAL SOLN PO SCH ×3 (11:57→21:41)
[2022-08-09] MEDS: Aspirin 81 mg Enteric Coated Tablet PO SCH (11:57)
[2022-08-09] MEDS: Saccharomyces boulardii 250 MG CAP PO SCH (11:59)
[2022-08-09] MEDS: Pregabalin 75 MG CAP PO SCH ×2 (11:59→21:41)
[2022-08-09] MEDS: Cholecalciferol (Vitamin D3) 400 UNITS TAB PO SCH (12:00)
[2022-08-09] MEDS: Cyclobenzaprine 10 MG TAB PO PRN ×2 (12:03→21:44)
[2022-08-09] MEDS: DULoxetine 30 MG CAP PO SCH (21:42)
[2022-08-10] MEDS: Vancomycin HCl 25 MG/ML ORAL SOLN PO SCH ×4 (02:51→21:36)
[2022-08-10 03:09] VITALS: BMI 57.6
[2022-08-10 05:48] LABS: #Basophils 0.2 10x3/uL (0.0-0.2); #Eosinphils 0.5 10x3/uL (0.0-0.5); #Monocytes 1.1 10x3/uL (0.0-1.1); #Neutrophils 10.1 10x3/uL (1.5-8.4); %Basophils 1.1 % (0.0-2.0); %Eosinophils 3.5 % (0.0-6.0); %Lymphocytes 15.1 % (18.0-47.0); %Monocytes 7.6 % (0.0-10.0); %Neutrophils 69.4 % (40.0-75.0); Hemoglobin 11.8 g/dL (12.0-15.5); Mean Corpuscular HGB CONC 31.6 g/dL (32.0-36.0); Mean Corpuscular Volume 94.9 fl (81.6-98.3); Mean Platelet Volume 9.2 fl (7.4-10.4); Platelet Count 518 10x3/uL (150-450); RBC Distribution Width 13.1 % (11.5-14.5); Red Blood Cell (RBC) Count 3.93 10x6/uL (3.90-5.03); White Blood Cell (WBC) Count 14.5 10x3/uL (3.5-10.5)
[2022-08-10] MEDS: Aspirin 81 mg Enteric Coated Tablet PO SCH (10:00)
[2022-08-10] MEDS: Cholecalciferol (Vitamin D3) 400 UNITS TAB PO SCH (10:00)
[2022-08-10] MEDS: Pregabalin 75 MG CAP PO SCH ×2 (10:01→21:35)
[2022-08-10] MEDS: Saccharomyces boulardii 250 MG CAP PO SCH (10:01)
[2022-08-10] MEDS: Cyclobenzaprine 10 MG TAB PO PRN (10:06)
[2022-08-10] MEDS: DULoxetine 30 MG CAP PO SCH (21:35)
[2022-08-11] MEDS: Vancomycin HCl 25 MG/ML ORAL SOLN PO SCH ×4 (02:32→20:00)
[2022-08-11 05:40] LABS: #Basophils 0.1 10x3/uL (0.0-0.2); #Eosinphils 0.4 10x3/uL (0.0-0.5); #Monocytes 0.7 10x3/uL (0.0-1.1); #Neutrophils 8.1 10x3/uL (1.5-8.4); %Basophils 0.5 % (0.0-2.0); %Eosinophils 3.3 % (0.0-6.0); %Lymphocytes 19.2 % (18.0-47.0); %Monocytes 5.7 % (0.0-10.0); %Neutrophils 66.6 % (40.0-75.0); Hemoglobin 12.1 g/dL (12.0-15.5); Mean Corpuscular HGB CONC 32.8 g/dL (32.0-36.0); Mean Corpuscular Hemoglobin 30.6 pg (27.0-33.0); Mean Corpuscular Volume 93.2 fl (81.6-98.3); Mean Platelet Volume 9.2 fl (7.4-10.4); Platelet Count 570 10x3/uL (150-450); RBC Distribution Width 12.9 % (11.5-14.5); Red Blood Cell (RBC) Count 3.96 10x6/uL (3.90-5.03); White Blood Cell (WBC) Count 12.1 10x3/uL (3.5-10.5)
[2022-08-11 05:55] LABS: Anion Gap 11 mmol/L (10-20); BUN (Urea Nitrogen) 7 mg/dL (9.8-20.1); CRP (Inflammatory) 3.21 mg/dL (= or < 0.5); Calc. Creatinine Clearance 245 mL/min (70-130); Calcium 8.8 mg/dL (7.8-10.44); Carbon Dioxide 27 mmol/L (23-31); Chloride 104 mmol/L (98-107); Estimated GFR 102; Glucose 102 mg/dL (80-115); Magnesium 1.6 mg/dL (1.6-2.6); Sodium 138 mmol/L (136-145)
[2022-08-11] MEDS: Cyclobenzaprine 10 MG TAB PO PRN (08:59)
[2022-08-11] MEDS: Pregabalin 75 MG CAP PO SCH ×2 (08:59→20:00)
[2022-08-11] MEDS: Aspirin 81 mg Enteric Coated Tablet PO SCH (08:59)
[2022-08-11] MEDS: Cholecalciferol (Vitamin D3) 400 UNITS TAB PO SCH (08:59)
[2022-08-11] MEDS ORDERED: Magnesium 2 GM/50 ML(in water) 2 GM in Premix Bag 1 BAG IVPB SCH (09:00)
[2022-08-11] MEDS: Saccharomyces boulardii 250 MG CAP PO SCH (09:00)
[2022-08-11] MEDS: DULoxetine 30 MG CAP PO SCH (20:01)
[2022-08-12] MEDS: Vancomycin HCl 25 MG/ML ORAL SOLN PO SCH ×4 (03:15→22:02)
[2022-08-12 06:18] LABS: #Basophils 0.1 10x3/uL (0.0-0.2); #Eosinphils 0.3 10x3/uL (0.0-0.5); #Monocytes 0.7 10x3/uL (0.0-1.1); #Neutrophils 7.7 10x3/uL (1.5-8.4); %Eosinophils 2.9 % (0.0-6.0); %Lymphocytes 18.7 % (18.0-47.0); %Monocytes 6.2 % (0.0-10.0); %Neutrophils 66.7 % (40.0-75.0); Hemoglobin 12.2 g/dL (12.0-15.5); Mean Corpuscular HGB CONC 32.7 g/dL (32.0-36.0); Mean Corpuscular Volume 91.6 fl (81.6-98.3); Mean Platelet Volume 8.9 fl (7.4-10.4); Platelet Count 566 10x3/uL (150-450); RBC Distribution Width 12.7 % (11.5-14.5); Red Blood Cell (RBC) Count 4.07 10x6/uL (3.90-5.03); White Blood Cell (WBC) Count 11.5 10x3/uL (3.5-10.5)
[2022-08-12 06:27] LABS: Anion Gap 12 mmol/L (10-20); BUN (Urea Nitrogen) 9 mg/dL (9.8-20.1); Calc. Creatinine Clearance 237 mL/min (70-130); Calcium 8.4 mg/dL (7.8-10.44); Carbon Dioxide 29 mmol/L (23-31); Chloride 102 mmol/L (98-107); Estimated GFR 101; Glucose 104 mg/dL (80-115); Potassium 3.7 mmol/L (3.5-5.1); Sodium 139 mmol/L (136-145)
[2022-08-12 07:48] LABS: Magnesium 1.7 mg/dL (1.6-2.6)
[2022-08-12] MEDS: Saccharomyces boulardii 250 MG CAP PO SCH (08:33)
[2022-08-12] MEDS: Cyclobenzaprine 10 MG TAB PO PRN (08:33)
[2022-08-12] MEDS: Pregabalin 75 MG CAP PO SCH ×2 (08:33→22:01)
[2022-08-12] MEDS: Aspirin 81 mg Enteric Coated Tablet PO SCH (08:33)
[2022-08-12] MEDS: Cholecalciferol (Vitamin D3) 400 UNITS TAB PO SCH (08:33)
[2022-08-12] MEDS: DULoxetine 30 MG CAP PO SCH (22:02)
[2022-08-13] MEDS: Vancomycin HCl 25 MG/ML ORAL SOLN PO SCH ×2 (02:18→08:42)
[2022-08-13 07:31] VITALS: BP 137/80; TEMP 97.6
[2022-08-13] MEDS: Aspirin 81 mg Enteric Coated Tablet PO SCH (08:40)
[2022-08-13] MEDS: Cyclobenzaprine 10 MG TAB PO PRN (08:40)
[2022-08-13] MEDS: Pregabalin 75 MG CAP PO SCH (08:40)
[2022-08-13] MEDS: Cholecalciferol (Vitamin D3) 400 UNITS TAB PO SCH (08:41)
[2022-08-13] MEDS: Saccharomyces boulardii 250 MG CAP PO SCH (08:42)
[2022-08-13] MEDS ORDERED: Vancomycin HCl 25 MG/ML ORAL SOLN PO SCH (14:00)
== END 2022-08-13 11:36 | DRG 872 ==
LOC: CSHERS 12:28 → CSHTELE 16:24 → INTOOBSV 16:24 → OBSVTOIN 08-05 08:00
PROVIDERS: ADMIT Family Medicine; ATTEND Family Medicine
DX: A41.9 Sepsis, unspecified organism (principal); A04.72 Enterocolitis due to Clostridium difficile, not specified as recurrent; Z68.43 Body mass index [BMI] 50.0-59.9, adult; E87.1 Hypo-osmolality and hyponatremia; J96.11 Chronic respiratory failure with hypoxia; I10 Essential (primary) hypertension; E78.5 Hyperlipidemia, unspecified; G47.33 Obstructive sleep apnea (adult) (pediatric); E66.01 Morbid (severe) obesity due to excess calories; M54.50 Low back pain, unspecified; G89.29 Other chronic pain; F17.210 Nicotine dependence, cigarettes, uncomplicated; M79.7 Fibromyalgia; E86.0 Dehydration; Z88.0 Allergy status to penicillin; Z79.82 Long term (current) use of aspirin; Z79.899 Other long term (current) drug therapy; Z90.49 Acquired absence of other specified parts of digestive tract; Z90.89 Acquired absence of other organs; Z98.890 Other specified postprocedural states; Z88.2 Allergy status to sulfonamides; Z88.8 Allergy status to other drugs, medicaments and biological substances
CPT/HCPCS: 36415; 71045; 74177; 80048; 80053; 82550; 83605; 83735; 83880; 84443; 84484; 85025; 86140; 87040; 87324; 87449; 87493; 93005; 93010; 94760; 94762; 96374; 96375; J0744; J1170; J1650; J2185; J2405; J3475; J7050; Q9967

== ENCOUNTER 2022-12-20 08:48 | Inpatient (IN) | payer OTHER, MEDICARE ==
[2022-12-20 10:48] LABS: SARS-CoV-2 NAA Rapid Test Not Detected (NotDetected)
[2022-12-20 11:10] LABS: Actual Bicarbonate (HCO3v) 19.3 mEq/L (22-28); Base Excess -3.9 mEq/L (-2 - +2); Calcium, Ionized (venous) 0.97 mmol/L (1.16-1.32); Chloride (VBG) 98 mmol/L (98-106); Hematocrit-VBG 46 % (36.0-47.0); Hemoglobin (Hb) 15.8 g/dL (11.7-16.1); Potassium (VBG) 3.79 mmol/L (3.70-5.30); Puncture Site Other Site; Sodium 133 mmol/L (133-146); pH (venous) 7.417 (7.32-7.43)
[2022-12-20 11:41] LABS: #Basophils 0.4 10x3/uL (0.0-0.2); #Eosinphils 0.1 10x3/uL (0.0-0.5); #Monocytes 0.9 10x3/uL (0.0-1.1); #Neutrophils 19.7 10x3/uL (1.5-8.4); %Basophils 1.6 % (0.0-2.0); %Eosinophils 0.3 % (0.0-6.0); Hematocrit 45.4 % (34.9-44.5); Hemoglobin 14.9 g/dL (12.0-15.5); Mean Corpuscular HGB CONC 32.8 g/dL (32.0-36.0); Mean Corpuscular Hemoglobin 29.9 pg (27.0-33.0); Mean Corpuscular Volume 91.2 fl (81.6-98.3); Mean Platelet Volume 9.6 fl (7.4-10.4); Platelet Count 454 10x3/uL (150-450); RBC Distribution Width 13.7 % (11.5-14.5); Red Blood Cell (RBC) Count 4.98 10x6/uL (3.90-5.03); White Blood Cell (WBC) Count 22.6 10x3/uL (3.5-10.5)
[2022-12-20] MEDS ORDERED: cefTRIAXone (ROCEPHIN) 1 GM VIAL ONE (12:04)
[2022-12-20] MEDS ORDERED: Azithromycin 500 MG VIAL ONE (12:04)
[2022-12-20 12:18] LABS: ALT (SGPT) 35 U/L (8-55); AST (SGOT) 27 U/L (5-34); Albumin 3.8 g/dL (3.4-4.8); Alkaline Phosphatase 122 U/L (40-110); Anion Gap 18 mmol/L (10-20); BUN (Urea Nitrogen) 15 mg/dL (9.8-20.1); Bilirubin, Total 1.8 mg/dL (0.2-1.2); Calc. Creatinine Clearance 0 mL/min (70-130); Calcium 8.8 mg/dL (7.8-10.44); Carbon Dioxide 20 mmol/L (23-31); Chloride 98 mmol/L (98-107); Estimated GFR 74; Globulin 3.1 g/dL (2.4-3.5); Glucose 144 mg/dL (80-115); Magnesium 1.4 mg/dL (1.6-2.6); Potassium 3.9 mmol/L (3.5-5.1); Protein, Total 6.9 g/dL (5.8-8.1); Sodium 132 mmol/L (136-145)
[2022-12-20 12:20] LABS: Troponin I 0.023 ng/mL (< 0.028)
[2022-12-20 12:33] LABS: Lipase 8 U/L (8-78)
[2022-12-20] MEDS ORDERED: Ondansetron ODT 4 MG TAB PO PRN (13:44)
[2022-12-20] MEDS ORDERED: Sodium Chloride 0.9% 1,000 ML IV SCH (13:45)
[2022-12-20] MEDS ORDERED: Glucagon 1 MG/ML KIT IM PRN (13:51)
[2022-12-20] MEDS ORDERED: Dextrose 5% in Water 1,000 ML IV PRN (13:51)
[2022-12-20] MEDS ORDERED: HumaLOG 300 UNITS/3 ML VIAL SC PRN ×2 (13:51)
[2022-12-20] MEDS ORDERED: Dextrose 50% Abboject 50 ML SYRINGE SLOW IVP PRN (13:51)
[2022-12-20] MEDS ORDERED: LevoFLOXacin 750 mg/D5W 750 MG in Premix 1 BAG IVPB SCH (15:00)
[2022-12-20] MEDS: Ondansetron PF 4 MG/2 ML Vial IVP PRN (21:00)
[2022-12-20] MEDS: Acetaminophen 325 MG TAB PO PRN (21:01)
[2022-12-20] MEDS ORDERED: Magnesium 2 GM/50 ML(in water) 2 GM in Premix 1 BAG IVPB SCH (23:45)
[2022-12-20] MEDS ORDERED: Potassium Chloride 20 MEQ TAB PO SCH (23:45)
[2022-12-20] MEDS ORDERED: Lactated Ringer's 1,000 ML IV SCH (23:45)
[2022-12-21] MEDS: Sodium Chloride 0.9% 1,000 ML IV SCH ×3 (01:19→15:05)
[2022-12-21 05:46] LABS: Hematocrit 45.3 % (34.9-44.5); Hemoglobin 15.4 g/dL (12.0-15.5); Mean Corpuscular Hemoglobin 31.2 pg (27.0-33.0); Mean Corpuscular Volume 91.7 fl (81.6-98.3); Mean Platelet Volume 10.1 fl (7.4-10.4); Platelet Count 314 10x3/uL (150-450); RBC Distribution Width 13.7 % (11.5-14.5); Red Blood Cell (RBC) Count 4.94 10x6/uL (3.90-5.03); White Blood Cell (WBC) Count 20.1 10x3/uL (3.5-10.5)
[2022-12-21 05:54] LABS: MDiff Complete? YES
[2022-12-21 05:55] LABS: Anion Gap 17 mmol/L (10-20); BUN (Urea Nitrogen) 24 mg/dL (9.8-20.1); Calc. Creatinine Clearance 136 mL/min (70-130); Calcium 8.6 mg/dL (7.8-10.44); Carbon Dioxide 19 mmol/L (23-31); Chloride 99 mmol/L (98-107); Estimated GFR 66; Glucose 136 mg/dL (80-115); Sodium 131 mmol/L (136-145)
[2022-12-21 06:39] LABS: Platelet Adequacy Comment Appears Adequate; RBC Morph Comment Within Normal Limits
[2022-12-21 06:43] LABS: Band 13 % (5-11); Lymphocytes 5 % (21-51); Metamyelocyte 2 % (0-0); Monocytes 3 % (0-10); Neutrophil 77 % (42-75)
[2022-12-21] MEDS ORDERED: HYDROcodone/Acetaminophen 5/325 mg Tablet PO PRN (07:26)
[2022-12-21] MEDS: Ondansetron PF 4 MG/2 ML Vial IVP PRN (08:58)
[2022-12-21] MEDS ORDERED: Fidaxomicin 200 MG TAB PO SCH (09:00)
[2022-12-21] MEDS ORDERED: Apixaban 5 MG TAB PO SCH (09:00)
[2022-12-21] MEDS ORDERED: Doxycycline 100 MG in Sodium Chloride 0.9% 100 ML IVPB SCH (09:00)
[2022-12-21] MEDS ORDERED: Pregabalin 75 MG CAP PO SCH (09:00)
[2022-12-21] MEDS: Cholecalciferol (Vitamin D3) 400 UNITS TAB PO SCH (09:03)
[2022-12-21] MEDS: Ranolazine 500 MG ER.TAB PO SCH (09:03)
[2022-12-21] MEDS: Mirabegron ER 25 MG ER.TAB PO SCH (09:03)
[2022-12-21] MEDS: Amiodarone 200 MG TAB PO SCH (09:04)
[2022-12-21] MEDS: Aspirin 81 mg Enteric Coated Tablet PO SCH (09:04)
[2022-12-21] MEDS ORDERED: Azithromycin 500 MG in Sodium Chloride 0.9% 250 ML 250 ML IVPB SCH (12:00)
[2022-12-21] MEDS ORDERED: cefTRIAXone\\ROCEPHIN 1 GM in Sodium Chloride 0.9% 100 ML IVPB SCH (12:00)
[2022-12-21] MEDS ORDERED: metroNIDAZOLE 500 MG in Premix 1 BAG IVPB SCH (14:00)
[2022-12-21] MEDS: Pregabalin 50 MG CAP PO SCH (19:56)
[2022-12-21] MEDS: DULoxetine 30 MG CAP PO SCH (19:57)
[2022-12-21 20:18] LABS: Lactic Acid 1.8 mmol/L (0.5-2.2)
[2022-12-21] MEDS: Fidaxomicin 200 MG TAB PO SCH (23:00)
[2022-12-21] MEDS: Saccharomyces boulardii 250 MG CAP PO SCH (23:30)
[2022-12-22] MEDS: Sodium Chloride 0.9% 1,000 ML IV SCH ×4 (00:01→16:08)
[2022-12-22 04:41] LABS: Hemoglobin 15.6 g/dL (12.0-15.5); Mean Corpuscular HGB CONC 33.9 g/dL (32.0-36.0); Mean Corpuscular Hemoglobin 30.2 pg (27.0-33.0); Mean Platelet Volume 10.6 fl (7.4-10.4); Platelet Count 242 10x3/uL (150-450); RBC Distribution Width 13.7 % (11.5-14.5); Red Blood Cell (RBC) Count 5.17 10x6/uL (3.90-5.03); White Blood Cell (WBC) Count 22.6 10x3/uL (3.5-10.5)
[2022-12-22 04:45] LABS: MDiff Complete? YES
[2022-12-22 04:49] LABS: Anion Gap 17 mmol/L (10-20); BUN (Urea Nitrogen) 33 mg/dL (9.8-20.1); Calc. Creatinine Clearance 115 mL/min (70-130); Calcium 8.3 mg/dL (7.8-10.44); Carbon Dioxide 15 mmol/L (23-31); Chloride 101 mmol/L (98-107); Estimated GFR 53; Glucose 99 mg/dL (80-115); Sodium 129 mmol/L (136-145)
[2022-12-22 04:51] LABS: Potassium 4.4 mmol/L (3.5-5.1)
[2022-12-22 05:01] LABS: Platelet Adequacy Comment Appears Adequate; RBC Morph Comment Within Normal Limits
[2022-12-22 05:03] LABS: Band 11 % (5-11); Eosinophils 1 % (0-10); Lymphocytes 8 % (21-51); Metamyelocyte 1 % (0-0); Monocytes 10 % (0-10); Neutrophil 69 % (42-75)
[2022-12-22] MEDS ORDERED: Sodium Chloride 0.9% 500 ML IV SCH (07:00)
[2022-12-22] MEDS: Amiodarone 200 MG TAB PO SCH (08:38)
[2022-12-22] MEDS: Ranolazine 500 MG ER.TAB PO SCH (08:38)
[2022-12-22] MEDS: Aspirin 81 mg Enteric Coated Tablet PO SCH (08:38)
[2022-12-22] MEDS: Fidaxomicin 200 MG TAB PO SCH ×2 (08:38→21:11)
[2022-12-22] MEDS: Pregabalin 50 MG CAP PO SCH ×2 (08:39→21:10)
[2022-12-22] MEDS: Cholecalciferol (Vitamin D3) 400 UNITS TAB PO SCH (09:30)
[2022-12-22] MEDS: Mirabegron ER 25 MG ER.TAB PO SCH (09:45)
[2022-12-22] MEDS ORDERED: Pantoprazole 40 MG VIAL IVP SCH (11:00)
[2022-12-22] MEDS: Saccharomyces boulardii 250 MG CAP PO SCH ×2 (11:46→21:11)
[2022-12-22] MEDS: Pantoprazole 40 MG VIAL IVP SCH (21:11)
[2022-12-22] MEDS: DULoxetine 30 MG CAP PO SCH (21:12)
[2022-12-22 22:26] LABS: Campy jejuni + coli by PCR Negative (Negative); STEC Shiga Toxin 1+2 Negative (Negative); Salmonella spp. by PCR Negative (Negative); Shigella spp + EIEC by PCR Negative (Negative)
[2022-12-23] MEDS: Sodium Chloride 0.9% 1,000 ML IV SCH ×3 (02:23→21:31)
[2022-12-23 04:14] LABS: Lactic Acid 2.4 mmol/L (0.5-2.2)
[2022-12-23 04:18] LABS: Anion Gap 16 mmol/L (10-20); BUN (Urea Nitrogen) 41 mg/dL (9.8-20.1); Calc. Creatinine Clearance 112 mL/min (70-130); Calcium 8.6 mg/dL (7.8-10.44); Carbon Dioxide 14 mmol/L (23-31); Chloride 103 mmol/L (98-107); Estimated GFR 52; Glucose 90 mg/dL (80-115); Potassium 4.4 mmol/L (3.5-5.1); Sodium 129 mmol/L (136-145)
[2022-12-23 04:41] LABS: Hematocrit 46.1 % (34.9-44.5); Mean Corpuscular HGB CONC 32.5 g/dL (32.0-36.0); Mean Corpuscular Hemoglobin 29.8 pg (27.0-33.0); Mean Corpuscular Volume 91.7 fl (81.6-98.3); Mean Platelet Volume 10.7 fl (7.4-10.4); Platelet Count 263 10x3/uL (150-450); RBC Distribution Width 14.2 % (11.5-14.5); Red Blood Cell (RBC) Count 5.03 10x6/uL (3.90-5.03); White Blood Cell (WBC) Count 19.2 10x3/uL (3.5-10.5)
[2022-12-23 05:23] LABS: MDiff Complete? YES
[2022-12-23 06:09] LABS: Band 6 % (5-11); Lymphocytes 4 % (21-51); Monocytes 7 % (0-10); Neutrophil 83 % (42-75)
[2022-12-23 06:11] LABS: Platelet Adequacy Comment Appears Adequate; RBC Morph Comment Within Normal Limits
[2022-12-23] MEDS: Ondansetron PF 4 MG/2 ML Vial IVP PRN (08:00)
[2022-12-23] MEDS: Ranolazine 500 MG ER.TAB PO SCH (08:38)
[2022-12-23] MEDS: Amiodarone 200 MG TAB PO SCH (08:38)
[2022-12-23] MEDS: Pregabalin 50 MG CAP PO SCH ×2 (08:38→21:26)
[2022-12-23] MEDS: Pantoprazole 40 MG VIAL IVP SCH ×2 (08:38→21:27)
[2022-12-23] MEDS: Aspirin 81 mg Enteric Coated Tablet PO SCH (08:38)
[2022-12-23] MEDS: Cholecalciferol (Vitamin D3) 400 UNITS TAB PO SCH (08:41)
[2022-12-23] MEDS: Mirabegron ER 25 MG ER.TAB PO SCH (08:42)
[2022-12-23] MEDS: Fidaxomicin 200 MG TAB PO SCH ×2 (10:12→21:27)
[2022-12-23] MEDS: Saccharomyces boulardii 250 MG CAP PO SCH ×2 (11:16→21:27)
[2022-12-23] MEDS: DULoxetine 30 MG CAP PO SCH (21:26)
[2022-12-23] MEDS: metroNIDAZOLE 500 MG in Premix 1 BAG IVPB SCH (21:27)
[2022-12-24 04:07] LABS: ALT (SGPT) 40 U/L (8-55); AST (SGOT) 37 U/L (5-34); Albumin 2.5 g/dL (3.4-4.8); Alkaline Phosphatase 125 U/L (40-110); Anion Gap 15 mmol/L (10-20); BUN (Urea Nitrogen) 40 mg/dL (9.8-20.1); Bilirubin, Total 0.5 mg/dL (0.2-1.2); Calc. Creatinine Clearance 123 mL/min (70-130); Calcium 8.6 mg/dL (7.8-10.44); Carbon Dioxide 16 mmol/L (23-31); Chloride 104 mmol/L (98-107); Estimated GFR 58; Globulin 3.1 g/dL (2.4-3.5); Glucose 95 mg/dL (80-115); Magnesium 2.1 mg/dL (1.6-2.6); Potassium 4.1 mmol/L (3.5-5.1); Protein, Total 5.6 g/dL (5.8-8.1); Sodium 131 mmol/L (136-145)
[2022-12-24 04:09] LABS: Phosphorus 3.3 mg/dL (2.3-4.7)
[2022-12-24 04:10] LABS: Hematocrit 41.5 % (34.9-44.5); Mean Corpuscular HGB CONC 34.2 g/dL (32.0-36.0); Mean Corpuscular Hemoglobin 30.2 pg (27.0-33.0); Mean Corpuscular Volume 88.2 fl (81.6-98.3); Platelet Count 267 10x3/uL (150-450); RBC Distribution Width 14.4 % (11.5-14.5); Red Blood Cell (RBC) Count 4.67 10x6/uL (3.90-5.03); White Blood Cell (WBC) Count 20.6 10x3/uL (3.5-10.5)
[2022-12-24 04:11] LABS: MDiff Complete? YES
[2022-12-24] MEDS: metroNIDAZOLE 500 MG in Premix 1 BAG IVPB SCH ×3 (05:06→21:27)
[2022-12-24 05:34] LABS: Band 12 % (5-11); Eosinophils 1 % (0-10); Lymphocytes 4 % (21-51); Monocytes 1 % (0-10); Neutrophil 82 % (42-75)
[2022-12-24 05:35] LABS: Platelet Adequacy Comment Appears Adequate; RBC Morph Comment Within Normal Limits
[2022-12-24] MEDS: Pregabalin 50 MG CAP PO SCH ×2 (08:25→21:27)
[2022-12-24] MEDS: Sodium Chloride 0.9% 1,000 ML IV SCH ×2 (08:25→16:40)
[2022-12-24] MEDS: Pantoprazole 40 MG VIAL IVP SCH ×2 (08:25→21:28)
[2022-12-24] MEDS: Mirabegron ER 25 MG ER.TAB PO SCH (08:26)
[2022-12-24] MEDS: Aspirin 81 mg Enteric Coated Tablet PO SCH (08:26)
[2022-12-24] MEDS: Fidaxomicin 200 MG TAB PO SCH ×2 (08:26→21:27)
[2022-12-24] MEDS: Ranolazine 500 MG ER.TAB PO SCH (08:26)
[2022-12-24] MEDS: Cholecalciferol (Vitamin D3) 400 UNITS TAB PO SCH (08:26)
[2022-12-24] MEDS: Amiodarone 200 MG TAB PO SCH (08:27)
[2022-12-24] MEDS: Saccharomyces boulardii 250 MG CAP PO SCH ×2 (10:54→21:27)
[2022-12-24] MEDS: Ondansetron PF 4 MG/2 ML Vial IVP PRN (10:54)
[2022-12-24] MEDS ORDERED: Amiodarone 450 MG in Dextrose 5% in Water 250 ML IVPB SCH (11:15)
[2022-12-24] MEDS ORDERED: Amiodarone In Dextrose 150 MG in Premix 1 BAG IVPB SCH (11:30)
[2022-12-24] MEDS: Amiodarone In Dextrose 200 ML IVPB SCH ×2 (11:32→17:48)
[2022-12-24] MEDS ORDERED: Metoprolol Tartrate 5 MG/5 ML VIAL IVP SCH (13:00)
[2022-12-24] MEDS ORDERED: Digoxin 0.5 MG/2 ML AMP SLOW IVP SCH (13:30)
[2022-12-24] MEDS ORDERED: Potassium Chloride 20 MEQ TAB PO SCH (13:30)
[2022-12-24] MEDS ORDERED: Magnesium Sulfate/D5W 1 GM in Premix 1 BAG IVPB SCH (13:45)
[2022-12-24] MEDS: Acetaminophen 325 MG TAB PO PRN (17:41)
[2022-12-24] MEDS: DULoxetine 30 MG CAP PO SCH (21:26)
[2022-12-25 03:42] LABS: Hematocrit 40.6 % (34.9-44.5); Hemoglobin 13.6 g/dL (12.0-15.5); Mean Corpuscular HGB CONC 33.5 g/dL (32.0-36.0); Mean Corpuscular Hemoglobin 30.5 pg (27.0-33.0); Mean Platelet Volume 10.9 fl (7.4-10.4); Platelet Count 295 10x3/uL (150-450); RBC Distribution Width 14.7 % (11.5-14.5); Red Blood Cell (RBC) Count 4.46 10x6/uL (3.90-5.03); White Blood Cell (WBC) Count 16.5 10x3/uL (3.5-10.5)
[2022-12-25 03:43] LABS: MDiff Complete? YES
[2022-12-25 03:44] LABS: Anion Gap 13 mmol/L (10-20); BUN (Urea Nitrogen) 34 mg/dL (9.8-20.1); Calc. Creatinine Clearance 144 mL/min (70-130); Calcium 8.4 mg/dL (7.8-10.44); Carbon Dioxide 19 mmol/L (23-31); Chloride 103 mmol/L (98-107); Estimated GFR 70; Glucose 90 mg/dL (80-115); Magnesium 2.2 mg/dL (1.6-2.6); Potassium 3.6 mmol/L (3.5-5.1); Sodium 131 mmol/L (136-145)
[2022-12-25 03:45] LABS: Phosphorus 3.2 mg/dL (2.3-4.7)
[2022-12-25 05:27] LABS: Band 9 % (5-11); Eosinophils 1 % (0-10); Lymphocytes 6 % (21-51); Monocytes 6 % (0-10); Neutrophil 78 % (42-75)
[2022-12-25 05:29] LABS: Platelet Adequacy Comment Appears Adequate; Platelet Clumps SLIGHT; RBC Morph Comment Within Normal Limits
[2022-12-25] MEDS: metroNIDAZOLE 500 MG in Premix 1 BAG IVPB SCH ×3 (06:18→21:00)
[2022-12-25] MEDS: Amiodarone In Dextrose 200 ML IVPB SCH ×2 (07:17→18:15)
[2022-12-25] MEDS: Sodium Chloride 0.9% 1,000 ML IV SCH ×2 (07:19→12:53)
[2022-12-25] MEDS: Pantoprazole 40 MG VIAL IVP SCH ×2 (08:16→20:59)
[2022-12-25] MEDS: Pregabalin 50 MG CAP PO SCH ×2 (08:16→20:57)
[2022-12-25] MEDS: Albumin 25% 25 GM/100 ML BOT IVPB SCH ×3 (08:16→20:59)
[2022-12-25] MEDS: Aspirin 81 mg Enteric Coated Tablet PO SCH (08:16)
[2022-12-25] MEDS: Ranolazine 500 MG ER.TAB PO SCH (08:16)
[2022-12-25] MEDS: Cholecalciferol (Vitamin D3) 400 UNITS TAB PO SCH (08:17)
[2022-12-25] MEDS: Mirabegron ER 25 MG ER.TAB PO SCH (08:17)
[2022-12-25] MEDS: Fidaxomicin 200 MG TAB PO SCH ×2 (08:17→21:30)
[2022-12-25] MEDS: Saccharomyces boulardii 250 MG CAP PO SCH ×2 (12:52→21:30)
[2022-12-25] MEDS ORDERED: Ipratropium/Albuterol 3 ML NEB NEB SCH (13:00)
[2022-12-25 13:10] LABS: ALV-art Gradient 30.605 mmHg (0-20); Actual Bicarbonate (HCO3a) 20.4 mEq/L (22-28); Analyzer IN Cardio CS ICU; Base Excess (BEa) -6.6 mEq/L (-2.0 to +3.0); CO2 Tension 46.5 mmHg (35.0-45.0); Calcium, Ionized (arterial) 1.23 mmol/L (1.12-1.30); Carboxyhemoglobin (COHb) 0.6 gm% (0.0-3.0); Hematocrit-ABG 39 % (36.0-47.0); Hemoglobin (Hb) 13.4 g/dL (12.0-16.0); Potassium - ABG Lab 3.39 mmol/L (3.70-5.30); Puncture Site RRA; pH, Arterial 7.261 (7.35-7.45)
[2022-12-25] MEDS ORDERED: Furosemide 40 MG/4 ML VIAL SLOW IVP SCH (15:30)
[2022-12-25] MEDS: Ipratropium/Albuterol 3 ML NEB NEB SCH ×2 (15:55→20:13)
[2022-12-25] MEDS: DULoxetine 30 MG CAP PO SCH (20:58)
[2022-12-26 03:48] LABS: Hemoglobin 12.1 g/dL (12.0-15.5); Mean Corpuscular HGB CONC 33.6 g/dL (32.0-36.0); Mean Corpuscular Hemoglobin 30.7 pg (27.0-33.0); Mean Corpuscular Volume 91.4 fl (81.6-98.3); Mean Platelet Volume 10.7 fl (7.4-10.4); Platelet Count 339 10x3/uL (150-450); RBC Distribution Width 14.8 % (11.5-14.5); Red Blood Cell (RBC) Count 3.94 10x6/uL (3.90-5.03); White Blood Cell (WBC) Count 15.4 10x3/uL (3.5-10.5)
[2022-12-26 04:05] LABS: Anion Gap 13 mmol/L (10-20); BUN (Urea Nitrogen) 27 mg/dL (9.8-20.1); Calc. Creatinine Clearance 157 mL/min (70-130); Calcium 8.5 mg/dL (7.8-10.44); Carbon Dioxide 20 mmol/L (23-31); Chloride 105 mmol/L (98-107); Estimated GFR 78; Glucose 96 mg/dL (80-115); Magnesium 1.8 mg/dL (1.6-2.6); Phosphorus 3.8 mg/dL (2.3-4.7); Potassium 3.2 mmol/L (3.5-5.1); Sodium 135 mmol/L (136-145)
[2022-12-26] MEDS: metroNIDAZOLE 500 MG in Premix 1 BAG IVPB SCH ×3 (06:36→22:51)
[2022-12-26] MEDS: Ipratropium/Albuterol 3 ML NEB NEB SCH ×4 (07:13→18:35)
[2022-12-26] MEDS: Albumin 25% 25 GM/100 ML BOT IVPB SCH (08:00)
[2022-12-26] MEDS: Fidaxomicin 200 MG TAB PO SCH ×2 (08:02→20:13)
[2022-12-26] MEDS: Aspirin 81 mg Enteric Coated Tablet PO SCH (08:02)
[2022-12-26] MEDS: Pantoprazole 40 MG VIAL IVP SCH ×2 (08:03→20:12)
[2022-12-26] MEDS: Mirabegron ER 25 MG ER.TAB PO SCH (08:03)
[2022-12-26] MEDS: Pregabalin 50 MG CAP PO SCH ×2 (08:03→20:13)
[2022-12-26] MEDS: Ranolazine 500 MG ER.TAB PO SCH (08:04)
[2022-12-26] MEDS: Amiodarone In Dextrose 200 ML IVPB SCH (08:14)
[2022-12-26] MEDS: Cholecalciferol (Vitamin D3) 400 UNITS TAB PO SCH (09:24)
[2022-12-26] MEDS ORDERED: Potassium Chloride 20 MEQ TAB PO SCH ×2 (09:30→18:00)
[2022-12-26] MEDS ORDERED: Magnesium 2 GM/50 ML(in water) 2 GM in Premix 1 BAG IVPB SCH (09:30)
[2022-12-26] MEDS: Saccharomyces boulardii 250 MG CAP PO SCH ×2 (10:44→22:51)
[2022-12-26] MEDS: DULoxetine 30 MG CAP PO SCH (20:12)
[2022-12-27 04:05] LABS: #Basophils 0.2 10x3/uL (0.0-0.2); #Eosinphils 0.3 10x3/uL (0.0-0.5); #Neutrophils 14.2 10x3/uL (1.5-8.4); %Basophils 0.9 % (0.0-2.0); %Eosinophils 1.6 % (0.0-6.0); %Lymphocytes 9.3 % (18.0-47.0); %Monocytes 5.6 % (0.0-10.0); %Neutrophils 78.2 % (40.0-75.0); Hematocrit 38.5 % (34.9-44.5); Hemoglobin 12.7 g/dL (12.0-15.5); Mean Corpuscular Hemoglobin 30.5 pg (27.0-33.0); Mean Corpuscular Volume 92.3 fl (81.6-98.3); Mean Platelet Volume 10.5 fl (7.4-10.4); Platelet Count 433 10x3/uL (150-450); RBC Distribution Width 15.3 % (11.5-14.5); Red Blood Cell (RBC) Count 4.17 10x6/uL (3.90-5.03); White Blood Cell (WBC) Count 18.2 10x3/uL (3.5-10.5)
[2022-12-27 04:09] LABS: Anion Gap 12 mmol/L (10-20); BUN (Urea Nitrogen) 20 mg/dL (9.8-20.1); Calc. Creatinine Clearance 186 mL/min (70-130); Calcium 8.5 mg/dL (7.8-10.44); Carbon Dioxide 23 mmol/L (23-31); Chloride 105 mmol/L (98-107); Estimated GFR 84; Glucose 89 mg/dL (80-115); Potassium 3.9 mmol/L (3.5-5.1); Sodium 136 mmol/L (136-145)
[2022-12-27] MEDS: metroNIDAZOLE 500 MG in Premix 1 BAG IVPB SCH ×3 (05:01→22:09)
[2022-12-27] MEDS: Ipratropium/Albuterol 3 ML NEB NEB SCH ×4 (07:17→19:05)
[2022-12-27] MEDS: Aspirin 81 mg Enteric Coated Tablet PO SCH (07:33)
[2022-12-27] MEDS: Amiodarone 200 MG TAB PO SCH (07:34)
[2022-12-27] MEDS: Pantoprazole 40 MG VIAL IVP SCH ×2 (07:34→20:33)
[2022-12-27] MEDS: Ranolazine 500 MG ER.TAB PO SCH (07:34)
[2022-12-27] MEDS: Fidaxomicin 200 MG TAB PO SCH ×2 (07:35→20:32)
[2022-12-27] MEDS: Pregabalin 50 MG CAP PO SCH ×2 (07:35→20:33)
[2022-12-27] MEDS: Mirabegron ER 25 MG ER.TAB PO SCH (07:36)
[2022-12-27] MEDS: Cholecalciferol (Vitamin D3) 400 UNITS TAB PO SCH (07:36)
[2022-12-27] MEDS: Saccharomyces boulardii 250 MG CAP PO SCH ×2 (11:09→22:09)
[2022-12-27] MEDS: DULoxetine 30 MG CAP PO SCH (20:32)
[2022-12-28 05:09] LABS: Anion Gap 14 mmol/L (10-20); BUN (Urea Nitrogen) 18 mg/dL (9.8-20.1); Calc. Creatinine Clearance 210 mL/min (70-130); Calcium 8.6 mg/dL (7.8-10.44); Carbon Dioxide 22 mmol/L (23-31); Chloride 104 mmol/L (98-107); Estimated GFR 96; Glucose 100 mg/dL (80-115); Potassium 3.9 mmol/L (3.5-5.1); Sodium 136 mmol/L (136-145)
[2022-12-28] MEDS: metroNIDAZOLE 500 MG in Premix 1 BAG IVPB SCH ×3 (06:09→22:09)
[2022-12-28] MEDS: Ipratropium/Albuterol 3 ML NEB NEB SCH ×4 (07:43→18:53)
[2022-12-28] MEDS: Pantoprazole 40 MG VIAL IVP SCH ×2 (08:43→22:00)
[2022-12-28] MEDS: Cholecalciferol (Vitamin D3) 400 UNITS TAB PO SCH (08:44)
[2022-12-28] MEDS: Pregabalin 50 MG CAP PO SCH ×2 (08:45→22:00)
[2022-12-28] MEDS: Mirabegron ER 25 MG ER.TAB PO SCH (08:45)
[2022-12-28] MEDS: Amiodarone 200 MG TAB PO SCH (08:45)
[2022-12-28] MEDS: Ranolazine 500 MG ER.TAB PO SCH (08:45)
[2022-12-28] MEDS: Aspirin 81 mg Enteric Coated Tablet PO SCH (08:45)
[2022-12-28] MEDS: Fidaxomicin 200 MG TAB PO SCH ×2 (08:45→22:00)
[2022-12-28] MEDS: Saccharomyces boulardii 250 MG CAP PO SCH ×2 (12:28→22:07)
[2022-12-28] MEDS: DULoxetine 30 MG CAP PO SCH (22:00)
[2022-12-29 04:27] LABS: Anion Gap 14 mmol/L (10-20); BUN (Urea Nitrogen) 19 mg/dL (9.8-20.1); Calc. Creatinine Clearance 199 mL/min (70-130); Calcium 8.5 mg/dL (7.8-10.44); Carbon Dioxide 22 mmol/L (23-31); Chloride 104 mmol/L (98-107); Estimated GFR 91; Glucose 118 mg/dL (80-115); Magnesium 1.8 mg/dL (1.6-2.6); Potassium 3.6 mmol/L (3.5-5.1); Sodium 136 mmol/L (136-145)
[2022-12-29] MEDS: metroNIDAZOLE 500 MG in Premix 1 BAG IVPB SCH ×3 (06:44→21:41)
[2022-12-29] MEDS: Ipratropium/Albuterol 3 ML NEB NEB SCH ×4 (07:35→18:50)
[2022-12-29] MEDS: Pantoprazole 40 MG VIAL IVP SCH ×2 (08:40→21:40)
[2022-12-29] MEDS: Aspirin 81 mg Enteric Coated Tablet PO SCH (08:40)
[2022-12-29] MEDS: Fidaxomicin 200 MG TAB PO SCH ×2 (08:40→21:43)
[2022-12-29] MEDS: Amiodarone 200 MG TAB PO SCH (08:40)
[2022-12-29] MEDS: Pregabalin 50 MG CAP PO SCH ×2 (08:41→21:40)
[2022-12-29] MEDS: Mirabegron ER 25 MG ER.TAB PO SCH (08:41)
[2022-12-29] MEDS: Cholecalciferol (Vitamin D3) 400 UNITS TAB PO SCH (08:41)
[2022-12-29] MEDS: Ranolazine 500 MG ER.TAB PO SCH (08:41)
[2022-12-29] MEDS: Saccharomyces boulardii 250 MG CAP PO SCH ×2 (08:41→23:40)
[2022-12-29] MEDS ORDERED: Sertraline 100 MG TAB PO SCH (13:00)
[2022-12-29] MEDS: DULoxetine 30 MG CAP PO SCH (21:39)
[2022-12-30 05:04] LABS: Anion Gap 12 mmol/L (10-20); BUN (Urea Nitrogen) 18 mg/dL (9.8-20.1); Calc. Creatinine Clearance 223 mL/min (70-130); Calcium 8.4 mg/dL (7.8-10.44); Carbon Dioxide 22 mmol/L (23-31); Chloride 106 mmol/L (98-107); Estimated GFR 98; Glucose 113 mg/dL (80-115); Magnesium 1.8 mg/dL (1.6-2.6); Potassium 3.5 mmol/L (3.5-5.1); Sodium 136 mmol/L (136-145)
[2022-12-30] MEDS: metroNIDAZOLE 500 MG in Premix 1 BAG IVPB SCH ×3 (06:07→22:19)
[2022-12-30] MEDS: Ipratropium/Albuterol 3 ML NEB NEB SCH ×4 (08:35→19:55)
[2022-12-30] MEDS: Pregabalin 50 MG CAP PO SCH ×2 (09:53→22:17)
[2022-12-30] MEDS: Aspirin 81 mg Enteric Coated Tablet PO SCH (09:54)
[2022-12-30] MEDS: Ranolazine 500 MG ER.TAB PO SCH (09:54)
[2022-12-30] MEDS: Mirabegron ER 25 MG ER.TAB PO SCH (09:54)
[2022-12-30] MEDS: Cholecalciferol (Vitamin D3) 400 UNITS TAB PO SCH (09:54)
[2022-12-30] MEDS: Amiodarone 200 MG TAB PO SCH (09:54)
[2022-12-30] MEDS: Sertraline 100 MG TAB PO SCH (09:54)
[2022-12-30] MEDS: Fidaxomicin 200 MG TAB PO SCH ×2 (09:55→22:18)
[2022-12-30] MEDS: Pantoprazole 40 MG VIAL IVP SCH ×2 (09:56→22:16)
[2022-12-30] MEDS: Saccharomyces boulardii 250 MG CAP PO SCH ×2 (16:25→22:16)
[2022-12-30] MEDS: DULoxetine 30 MG CAP PO SCH (22:21)
[2022-12-31] MEDS: metroNIDAZOLE 500 MG in Premix 1 BAG IVPB SCH ×3 (06:16→22:56)
[2022-12-31] MEDS: Ipratropium/Albuterol 3 ML NEB NEB SCH ×4 (07:55→19:40)
[2022-12-31] MEDS: Fidaxomicin 200 MG TAB PO SCH ×2 (08:38→22:50)
[2022-12-31] MEDS: Amiodarone 200 MG TAB PO SCH (08:51)
[2022-12-31] MEDS: Aspirin 81 mg Enteric Coated Tablet PO SCH (08:51)
[2022-12-31] MEDS: Cholecalciferol (Vitamin D3) 400 UNITS TAB PO SCH (08:52)
[2022-12-31] MEDS: Pregabalin 50 MG CAP PO SCH ×2 (08:55→22:50)
[2022-12-31] MEDS: Pantoprazole 40 MG VIAL IVP SCH ×2 (08:55→22:52)
[2022-12-31] MEDS: Mirabegron ER 25 MG ER.TAB PO SCH (08:55)
[2022-12-31] MEDS: Sertraline 100 MG TAB PO SCH (08:57)
[2022-12-31] MEDS: Ranolazine 500 MG ER.TAB PO SCH (08:58)
[2022-12-31] MEDS: Saccharomyces boulardii 250 MG CAP PO SCH ×2 (11:00→23:02)
[2022-12-31] MEDS: DULoxetine 30 MG CAP PO SCH (22:52)
[2023-01-01 05:52] LABS: Hematocrit 39.5 % (34.9-44.5); Hemoglobin 12.5 g/dL (12.0-15.5); Mean Corpuscular HGB CONC 31.6 g/dL (32.0-36.0); Mean Corpuscular Hemoglobin 29.8 pg (27.0-33.0); Mean Platelet Volume 9.6 fl (7.4-10.4); Platelet Count 466 10x3/uL (150-450); RBC Distribution Width 15.9 % (11.5-14.5); White Blood Cell (WBC) Count 22.5 10x3/uL (3.5-10.5)
[2023-01-01 05:54] LABS: Anion Gap 13 mmol/L (10-20); BUN (Urea Nitrogen) 16 mg/dL (9.8-20.1); Calc. Creatinine Clearance 220 mL/min (70-130); Calcium 8.4 mg/dL (7.8-10.44); Carbon Dioxide 24 mmol/L (23-31); Chloride 105 mmol/L (98-107); Estimated GFR 97; Glucose 108 mg/dL (80-115); Potassium 3.8 mmol/L (3.5-5.1); Sodium 138 mmol/L (136-145)
[2023-01-01] MEDS: metroNIDAZOLE 500 MG in Premix 1 BAG IVPB SCH ×3 (06:57→22:18)
[2023-01-01] MEDS: Ipratropium/Albuterol 3 ML NEB NEB SCH ×4 (08:00→19:43)
[2023-01-01] MEDS: Pantoprazole 40 MG VIAL IVP SCH ×2 (09:32→22:18)
[2023-01-01] MEDS: Ranolazine 500 MG ER.TAB PO SCH (09:33)
[2023-01-01] MEDS: Mirabegron ER 25 MG ER.TAB PO SCH (09:33)
[2023-01-01] MEDS: Aspirin 81 mg Enteric Coated Tablet PO SCH (09:33)
[2023-01-01] MEDS: Amiodarone 200 MG TAB PO SCH (09:33)
[2023-01-01] MEDS: Cholecalciferol (Vitamin D3) 400 UNITS TAB PO SCH (09:34)
[2023-01-01] MEDS: Pregabalin 50 MG CAP PO SCH ×2 (09:34→22:19)
[2023-01-01] MEDS: Saccharomyces boulardii 250 MG CAP PO SCH ×2 (09:34→22:21)
[2023-01-01] MEDS: Sertraline 100 MG TAB PO SCH (09:34)
[2023-01-01] MEDS: Fidaxomicin 200 MG TAB PO SCH ×2 (10:12→22:18)
[2023-01-01] MEDS: DULoxetine 30 MG CAP PO SCH (22:19)
[2023-01-02] MEDS: metroNIDAZOLE 500 MG in Premix 1 BAG IVPB SCH ×2 (05:21→13:27)
[2023-01-02] MEDS: Ipratropium/Albuterol 3 ML NEB NEB SCH ×2 (08:56→11:44)
[2023-01-02 09:34] LABS: #Basophils 0.1 10x3/uL (0.0-0.2); #Eosinphils 0.3 10x3/uL (0.0-0.5); #Monocytes 1.3 10x3/uL (0.0-1.1); #Neutrophils 18.6 10x3/uL (1.5-8.4); %Basophils 0.5 % (0.0-2.0); %Eosinophils 1.2 % (0.0-6.0); %Lymphocytes 8.3 % (18.0-47.0); %Monocytes 5.9 % (0.0-10.0); %Neutrophils 82.8 % (40.0-75.0); Hematocrit 38.1 % (34.9-44.5); Mean Corpuscular HGB CONC 31.5 g/dL (32.0-36.0); Mean Corpuscular Hemoglobin 30.4 pg (27.0-33.0); Mean Corpuscular Volume 96.5 fl (81.6-98.3); Mean Platelet Volume 9.7 fl (7.4-10.4); Platelet Count 459 10x3/uL (150-450); RBC Distribution Width 15.9 % (11.5-14.5); Red Blood Cell (RBC) Count 3.95 10x6/uL (3.90-5.03); White Blood Cell (WBC) Count 22.4 10x3/uL (3.5-10.5)
[2023-01-02 09:37] LABS: Anion Gap 12 mmol/L (10-20); BUN (Urea Nitrogen) 14 mg/dL (9.8-20.1); Calc. Creatinine Clearance 227 mL/min (70-130); Calcium 8.4 mg/dL (7.8-10.44); Carbon Dioxide 25 mmol/L (23-31); Chloride 106 mmol/L (98-107); Estimated GFR 98; Glucose 121 mg/dL (80-115); Potassium 3.6 mmol/L (3.5-5.1); Sodium 139 mmol/L (136-145)
[2023-01-02 09:45] VITALS: BMI 56.6
[2023-01-02] MEDS: Sertraline 100 MG TAB PO SCH (09:45)
[2023-01-02] MEDS: Amiodarone 200 MG TAB PO SCH (09:46)
[2023-01-02] MEDS: Ranolazine 500 MG ER.TAB PO SCH (09:46)
[2023-01-02] MEDS: Aspirin 81 mg Enteric Coated Tablet PO SCH (09:46)
[2023-01-02] MEDS: Cholecalciferol (Vitamin D3) 400 UNITS TAB PO SCH (09:46)
[2023-01-02] MEDS: Mirabegron ER 25 MG ER.TAB PO SCH (09:46)
[2023-01-02] MEDS: Pregabalin 50 MG CAP PO SCH (09:47)
[2023-01-02] MEDS: Saccharomyces boulardii 250 MG CAP PO SCH (09:47)
[2023-01-02] MEDS: Pantoprazole 40 MG VIAL IVP SCH (09:48)
[2023-01-02] MEDS: Fidaxomicin 200 MG TAB PO SCH (11:41)
[2023-01-02 12:46] VITALS: BP 123/75; TEMP 97.7
== END 2023-01-02 14:56 | disposition short-term general hospital (02) | DRG 871 ==
LOC: CSHERS 08:48 → CSHERHOLD 12:55 → CSHTELE 16:03 → CSHIMCU 12-21 14:27 → CSHTELE 12-29 17:48
PROVIDERS: ADMIT Internal Medicine; ATTEND Internal Medicine
PROC: 4A043R1 Measurement of Venous Saturation, Peripheral, Percutaneous Approach (ICD-10-PCS; 2022-12-20)
PROC: 3E03329 Introduction of Other Anti-infective into Peripheral Vein, Percutaneous Approach (ICD-10-PCS; 2022-12-20)
PROC: 4A033R1 Measurement of Arterial Saturation, Peripheral, Percutaneous Approach (ICD-10-PCS; principal; 2022-12-25)
PROC: 30233J1 Transfusion of Nonautologous Serum Albumin into Peripheral Vein, Percutaneous Approach (ICD-10-PCS; 2022-12-25)
PROC: 5A09357 Assistance with Respiratory Ventilation, Less than 24 Consecutive Hours, Continuous Positive Airway Pressure (ICD-10-PCS; 2022-12-25)
DX: A41.4 Sepsis due to anaerobes (principal); J96.01 Acute respiratory failure with hypoxia; A04.71 Enterocolitis due to Clostridium difficile, recurrent; N17.9 Acute kidney failure, unspecified; E87.1 Hypo-osmolality and hyponatremia; I50.32 Chronic diastolic (congestive) heart failure; Z68.43 Body mass index [BMI] 50.0-59.9, adult; I11.0 Hypertensive heart disease with heart failure; E78.5 Hyperlipidemia, unspecified; Z11.52 Encounter for screening for COVID-19; F17.290 Nicotine dependence, other tobacco product, uncomplicated; F10.90 Alcohol use, unspecified, uncomplicated; K63.89 Other specified diseases of intestine; N32.89 Other specified disorders of bladder; K76.0 Fatty (change of) liver, not elsewhere classified; I48.0 Paroxysmal atrial fibrillation; J40 Bronchitis, not specified as acute or chronic; M79.7 Fibromyalgia; M54.10 Radiculopathy, site unspecified; M51.9 Unspecified thoracic, thoracolumbar and lumbosacral intervertebral disc disorder; E66.01 Morbid (severe) obesity due to excess calories; I25.118 Atherosclerotic heart disease of native coronary artery with other forms of angina pectoris; G47.33 Obstructive sleep apnea (adult) (pediatric); E78.2 Mixed hyperlipidemia; E87.6 Hypokalemia; E11.9 Type 2 diabetes mellitus without complications; Z88.0 Allergy status to penicillin; Z88.5 Allergy status to narcotic agent; Z88.2 Allergy status to sulfonamides; Z79.899 Other long term (current) drug therapy; Z79.82 Long term (current) use of aspirin; Z98.890 Other specified postprocedural states; Z90.49 Acquired absence of other specified parts of digestive tract; Z90.89 Acquired absence of other organs; Z82.49 Family history of ischemic heart disease and other diseases of the circulatory system; E83.42 Hypomagnesemia
CPT/HCPCS: 36415; 36416; 36600; 71045; 74018; 74176; 80048; 80053; 82274; 82805; 83605; 83690; 83735; 83880; 84100; 84484; 85025; 85027; 87040; 87324; 87449; 87505; 93005; 93010; 94640; 94660; 94760; 94762; 96374; 96375; 97139; C9113; J0283; J0456; J0696; J1160; J1650; J1815; J1940; J1956; J2405; J3475; J3490; J7030; J7050; J7120; J7620; J7999; P9047